=== PATIENT | male | born 1950 | race African-American/Black ===

== ENCOUNTER 2017-02-17 23:03 | Emergency (ER) | payer OTHER ==
[~2017-02-17] VITALS: Ht 185.4 cm; Wt 77.1 kg
[~2017-02-17 23:03] MED LIST: ALTACE10 MG PO; ALTACE5 M1 PO; ALTACE5 MG PO; ASA81BEC PO; ASPIR 8181 MG PO; ASPIRIN325 PO; BYSTOLIC 5 MG5 M1 PO; CUBICIN500 MG PO; EFFIENT10 MG PO; GLIPIZIDE 10 MG10 MG; GLIPIZIDE 10 MG10 MG PO; GLYBURID-METFO1 EAC3 PO; IRON325 PO; JANUVIA 50 MG T50 MG PO; JANUVIA100 MG PO; LEVEMIR SUBQ; METOPROLOL SUCC25 M1 PO; NEURONTIN 300300 M1 PO; NITROGLYCERIN0.4 MG SL; NOVOLOG100 UNIT/1 SUBQ; PLAVIX 75 MG TA75 MG PO; TOPROL XL25 MG PO; TYLENOL325 MG PO; VITAMIN C500 MG PO; VITAMIN D1000 UNI1 PO; VYTORIN 10-401 EACH PO; januvia
[2017-02-17] MEDS ORDERED: NEURONTIN250 MG/5 M PO (23:25)
[2017-02-17] MEDS ORDERED: PLAVIX 75 MG TA75 M1 PO (23:28)
[2017-02-17] MEDS ORDERED: XARELTO15 MG PO (23:29)
[2017-02-18] MEDS ORDERED: ZOFRAN ODT8 MG PO (02:10)
== END 2017-02-18 03:02 | disposition home or self-care (01) ==
LOC: ER 23:03
DX: S91.111A Laceration without foreign body of right great toe without damage to nail, initial encounter (principal); L76.22 Postprocedural hemorrhage of skin and subcutaneous tissue following other procedure; I13.10 Hypertensive heart and chronic kidney disease without heart failure, with stage 1 through stage 4 chronic kidney disease, or unspecified chronic kidney disease; E11.22 Type 2 diabetes mellitus with diabetic chronic kidney disease; N18.3 Chronic kidney disease, stage 3 (moderate); I25.2 Old myocardial infarction; Z95.5 Presence of coronary angioplasty implant and graft; Z79.4 Long term (current) use of insulin; I25.10 Atherosclerotic heart disease of native coronary artery without angina pectoris; E78.00 Pure hypercholesterolemia, unspecified; X58.XXXA Exposure to other specified factors, initial encounter; Y93.89 Activity, other specified; Y92.89 Other specified places as the place of occurrence of the external cause; Y99.8 Other external cause status

== ENCOUNTER → 2017-03-04 | Outpatient (CLI) | payer OTHER ==
[~2017-03-04] MED LIST changes: +NEURONTIN250 MG/5 M PO; +PLAVIX 75 MG TA75 M1 PO; +XARELTO15 MG PO; +ZOFRAN ODT8 MG PO
== END ==
LOC: HYPER 07:00
DX: T81.89XA Other complications of procedures, not elsewhere classified, initial encounter (principal); I96 Gangrene, not elsewhere classified; Z47.81 Encounter for orthopedic aftercare following surgical amputation; E11.42 Type 2 diabetes mellitus with diabetic polyneuropathy; M77.41 Metatarsalgia, right foot; M21.371 Foot drop, right foot; E11.51 Type 2 diabetes mellitus with diabetic peripheral angiopathy without gangrene; Z79.84 Long term (current) use of oral hypoglycemic drugs; Z09 Encounter for follow-up examination after completed treatment for conditions other than malignant neoplasm; Y83.8 Other surgical procedures as the cause of abnormal reaction of the patient, or of later complication, without mention of misadventure at the time of the procedure; Y92.89 Other specified places as the place of occurrence of the external cause

== ENCOUNTER → 2017-03-04 | Outpatient (CLI) | payer OTHER ==
--- NOTE | ~2017-03-04 | EKG ---
[address] [address] ELECTROCARDIOGRAM REPORT Name: GINA PALMER [id number] Admission: 03/04/17 Attend Phys: Jonathan Martinez MD Discharge: Date of : 46 Report #: [id number] THIS REPORT FOR: //name// [facility] Test Date: 2017-03-04 Test Time: 12:51:54 Pat Name: GINA PALMER Department: Room: Gender: M Seasoner Hand: Alfreda : 1950 Requested By: Jonathan Martinez Order Number: [id number] MD: Juve Sanches Measurements Intervals [place] Rate: 78 P: 66 ND: 161 QRS: 37 QRSD: 88 T: 40 QT: 395 QTc: 450 Interpretive Statements Sinus rhythm Early repolarization Compared to ECG 09/12/2016 22:58:40 Myocardial infarct finding now present No significant change was found Electronically Signed On 03-05-2017 8:40:33 CDT by Juve Sanches [email or web address] <ELECTRONICALLY SIGNED> By: Juve Sanches MD, [facility] 03/05/17 0840 1251 1251 Juve Sanches MD, [facility] /EPI
== END ==
LOC: CV 12:15
DX: Z01.818 Encounter for other preprocedural examination (principal); M77.41 Metatarsalgia, right foot

== ENCOUNTER → 2017-03-24 | Outpatient (CLI) | payer OTHER ==
[~2017-03-24] MED LIST changes: +LEVAQUIN 750 M750 MG PO; +NORCO 5-325 TA1 EACH PO
[2017-03-24 12:25] VITALS: BP 147/78
== END ==
LOC: OPONC 06:33
DX: M86.9 Osteomyelitis, unspecified (principal)
CPT/HCPCS: 95000

== ENCOUNTER → 2017-03-25 | Outpatient (CLI) | payer OTHER ==
[2017-03-25 13:30] VITALS: BP 139/71
[2017-03-25 13:31] VITALS: BP 139/71
== END ==
LOC: OPONC 06:18
DX: M86.9 Osteomyelitis, unspecified (principal)
CPT/HCPCS: 95000

== ENCOUNTER → 2017-03-26 | Outpatient (CLI) | payer OTHER ==
[2017-03-26 15:10] VITALS: BP 156/78
== END ==
LOC: OPONC 01:48
DX: M86.9 Osteomyelitis, unspecified (principal)
CPT/HCPCS: 95000

== ENCOUNTER → 2017-03-27 | Outpatient (CLI) | payer OTHER ==
[2017-03-27 09:17] VITALS: BP 171/93
[2017-03-27 09:30] LABS: HEMOGLOBIN 7.1 gm/dL (14.0-18.0); MCH 25.7 pg (26.0-34.0); MCHC 32.4 g/dL (28.0-37.0); MCV 79.3 fL (80.0-100.0); RBC 2.77 mil/uL (4.50-6.00); RDW 18.7 % (10.5-14.5); WBC 5.7 thou/uL (4.0-11.0)
[2017-03-27 09:42] LABS: ALBUMIN 2.3 g/dL (3.4-5.0); CALCIUM 8.8 mg/dL (8.5-10.1); CREATININE 1.3 mg/dL (0.7-1.3); POTASSIUM 5.3 mmol/L (3.5-5.1); TOTAL BILIRUBIN 0.2 mg/dL (<0.1-1.0); TOTAL PROTEIN 7.4 g/dL (6.4-8.2)
== END ==
LOC: OPONC 06:22
DX: M86.9 Osteomyelitis, unspecified (principal)
CPT/HCPCS: 95000

== ENCOUNTER → 2017-03-28 | Outpatient (CLI) | payer OTHER | LOC: OPONC 05:01 | DX: M86.9 Osteomyelitis, unspecified (principal) | CPT/HCPCS: 95000 ==

== ENCOUNTER → 2017-03-29 | Outpatient (CLI) | payer OTHER | LOC: OPONC 05:03 | DX: M86.9 Osteomyelitis, unspecified (principal) | CPT/HCPCS: 95000 ==

== ENCOUNTER → 2017-03-30 | Outpatient (CLI) | payer OTHER ==
[~2017-03-30] MED LIST changes: +CYCLOBENZAPRINE5 MG PO; +LEVAQUIN 500 M500 M3 PO
[2017-03-30 13:08] VITALS: BP 136/78
== END ==
LOC: HYPER 00:26
DX: M86.9 Osteomyelitis, unspecified (principal)
CPT/HCPCS: 95000

== ENCOUNTER → 2017-03-31 | Outpatient (CLI) | payer OTHER ==
[~2017-03-31] MED LIST changes: -CYCLOBENZAPRINE5 MG PO; -LEVAQUIN 500 M500 M3 PO
[2017-03-31 12:20] VITALS: BP 150/74
== END ==
LOC: OPONC 00:49
DX: M86.9 Osteomyelitis, unspecified (principal)
CPT/HCPCS: 95000

== ENCOUNTER → 2017-04-01 | Outpatient (CLI) | payer OTHER ==
[2017-04-01 12:55] VITALS: BP 145/74
== END ==
LOC: OPONC 07:55
DX: M86.9 Osteomyelitis, unspecified (principal)
CPT/HCPCS: 95000

== ENCOUNTER → 2017-04-02 | Outpatient (CLI) | payer OTHER ==
[2017-04-02 13:30] VITALS: BP 146/87
[2017-04-02 13:42] LABS: HEMATOCRIT 23.4 % (42.0-52.0); HEMOGLOBIN 7.5 gm/dL (14.0-18.0); MCH 25.2 pg (26.0-34.0); MCV 78.7 fL (80.0-100.0); RBC 2.97 mil/uL (4.50-6.00); RDW 18.2 % (10.5-14.5); WBC 4.8 thou/uL (4.0-11.0)
[2017-04-02 13:56] LABS: ALBUMIN 2.6 g/dL (3.4-5.0); CALCIUM 9.1 mg/dL (8.5-10.1); CREATININE 1.2 mg/dL (0.7-1.3); POTASSIUM 4.7 mmol/L (3.5-5.1); TOTAL BILIRUBIN 0.2 mg/dL (<0.1-1.0); TOTAL PROTEIN 7.8 g/dL (6.4-8.2)
== END ==
LOC: OPONC 00:36
DX: M86.9 Osteomyelitis, unspecified (principal)
CPT/HCPCS: 95000

== ENCOUNTER → 2017-04-03 | Outpatient (CLI) | payer OTHER ==
[2017-04-03 15:55] VITALS: BP 151/84
== END ==
LOC: OPONC 00:46
DX: M86.9 Osteomyelitis, unspecified (principal)
CPT/HCPCS: 95000

== ENCOUNTER → 2017-04-04 | Outpatient (CLI) | payer OTHER | LOC: OPONC 05:14 | DX: M86.9 Osteomyelitis, unspecified (principal) | CPT/HCPCS: 95000 ==

== ENCOUNTER → 2017-04-05 | Outpatient (CLI) | payer OTHER | LOC: OPONC 04:45 | DX: M86.9 Osteomyelitis, unspecified (principal) | CPT/HCPCS: 95000 ==

== ENCOUNTER 2017-04-06 10:06 | Emergency (ER) | payer OTHER ==
[~2017-04-06] VITALS: Ht 185.4 cm; Wt 74.8 kg
[2017-04-06 11:57] LABS: ABSOLUTE NEUTROPHILS 4.4 thou/uL (1.4-8.2); BASOPHILS 0.9 % (0.0-2.0); EOSINOPHILS 3.9 % (0.0-3.0); HEMATOCRIT 25.5 % (42.0-52.0); HEMOGLOBIN 8.3 gm/dL (14.0-18.0); LYMPHOCYTES 13.5 % (24.0-44.0); MCH 25.4 pg (26.0-34.0); MCHC 32.6 g/dL (28.0-37.0); MCV 78.1 fL (80.0-100.0); MONOCYTES 6.7 % (1.0-8.0); PLATELET COUNT 248 thou/uL (150-400); RBC 3.27 mil/uL (4.50-6.00); RDW 18.9 % (10.5-14.5); WBC 5.9 thou/uL (4.0-11.0)
[2017-04-06 11:59] LABS: MANUAL DIFF NO
[2017-04-06 12:05] LABS: CALCIUM 9.2 mg/dL (8.5-10.1); POTASSIUM 4.7 mmol/L (3.5-5.1)
== END 2017-04-06 14:18 | disposition home or self-care (01) ==
LOC: ER 10:06
PROVIDERS: Emergency Medicine
DX: I95.1 Orthostatic hypotension (principal); E86.0 Dehydration; N17.9 Acute kidney failure, unspecified; I12.9 Hypertensive chronic kidney disease with stage 1 through stage 4 chronic kidney disease, or unspecified chronic kidney disease; E11.22 Type 2 diabetes mellitus with diabetic chronic kidney disease; N18.3 Chronic kidney disease, stage 3 (moderate); I25.2 Old myocardial infarction; I25.10 Atherosclerotic heart disease of native coronary artery without angina pectoris; E78.5 Hyperlipidemia, unspecified; M19.90 Unspecified osteoarthritis, unspecified site; Z95.5 Presence of coronary angioplasty implant and graft; Z79.4 Long term (current) use of insulin

== ENCOUNTER → 2017-04-06 | Outpatient (CLI) | payer OTHER ==
[2017-04-06 08:50] VITALS: BP 81/38
== END ==
LOC: OPONC 00:59
DX: M86.9 Osteomyelitis, unspecified (principal)
CPT/HCPCS: 95000

== ENCOUNTER → 2017-04-07 | Outpatient (CLI) | payer OTHER ==
[2017-04-07 09:30] VITALS: BP 143/79
== END ==
LOC: OPONC 00:48
DX: M86.9 Osteomyelitis, unspecified (principal)
CPT/HCPCS: 95000

== ENCOUNTER → 2017-04-08 | Outpatient (CLI) | payer OTHER ==
[2017-04-08 08:55] VITALS: BP 126/75
== END ==
LOC: OPONC 00:44
DX: M86.9 Osteomyelitis, unspecified (principal)
CPT/HCPCS: 95000

== ENCOUNTER → 2017-04-09 | Outpatient (CLI) | payer OTHER ==
[2017-04-09 08:45] VITALS: BP 137/80
[2017-04-09 09:05] LABS: HEMATOCRIT 25.3 % (42.0-52.0); MCH 24.9 pg (26.0-34.0); MCHC 31.7 g/dL (28.0-37.0); MCV 78.6 fL (80.0-100.0); RBC 3.21 mil/uL (4.50-6.00); RDW 18.4 % (10.5-14.5); WBC 4.3 thou/uL (4.0-11.0)
[2017-04-09 09:57] LABS: ALBUMIN 2.6 g/dL (3.4-5.0); CREATININE 1.4 mg/dL (0.7-1.3); POTASSIUM 4.5 mmol/L (3.5-5.1); TOTAL BILIRUBIN 0.2 mg/dL (<0.1-1.0); TOTAL PROTEIN 7.5 g/dL (6.4-8.2)
== END ==
LOC: OPONC 01:26
DX: M86.9 Osteomyelitis, unspecified (principal)
CPT/HCPCS: 95000

== ENCOUNTER → 2017-04-10 | Outpatient (CLI) | payer OTHER ==
[2017-04-10 14:17] VITALS: BP 120/70
== END ==
LOC: OPONC 00:31
DX: M86.9 Osteomyelitis, unspecified (principal)
CPT/HCPCS: 95000

== ENCOUNTER → 2017-04-11 | Outpatient (CLI) | payer OTHER | LOC: OPONC 01:26 | DX: M86.9 Osteomyelitis, unspecified (principal) | CPT/HCPCS: 95000 ==

== ENCOUNTER → 2017-04-12 | Outpatient (CLI) | payer OTHER ==
[~2017-04-12] MED LIST changes: +CYCLOBENZAPRINE5 MG PO
== END ==
LOC: OPONC 01:26
DX: M86.8X7 Other osteomyelitis, ankle and foot (principal)
CPT/HCPCS: 95000

== ENCOUNTER → 2017-04-13 | Outpatient (CLI) | payer OTHER ==
[2017-04-13 10:59] VITALS: BP 89/54
== END ==
LOC: OPONC 01:26
DX: M86.9 Osteomyelitis, unspecified (principal)
CPT/HCPCS: 95000

== ENCOUNTER → 2017-04-14 | Outpatient (CLI) | payer OTHER ==
[2017-04-14 10:11] VITALS: BP 107/55
== END ==
LOC: OPONC 00:31
DX: M86.9 Osteomyelitis, unspecified (principal)
CPT/HCPCS: 95000

== ENCOUNTER 2017-04-15 13:55 | Emergency (ER) | payer OTHER ==
[~2017-04-15] VITALS: Ht 188 cm; Wt 78.0 kg
[~2017-04-15 13:55] MED LIST changes: -CYCLOBENZAPRINE5 MG PO
[2017-04-15 14:47] LABS: HEMATOCRIT 27.8 % (42.0-52.0); HEMOGLOBIN 8.8 gm/dL (14.0-18.0); MCH 24.7 pg (26.0-34.0); MCHC 31.6 g/dL (28.0-37.0); MCV 78.3 fL (80.0-100.0); PLATELET COUNT 141 thou/uL (150-400); RBC 3.55 mil/uL (4.50-6.00); RDW 18.7 % (10.5-14.5); WBC 8.4 thou/uL (4.0-11.0)
[2017-04-15 14:48] LABS: MANUAL DIFF YES
[2017-04-15 14:55] LABS: ANION GAP 4 mmol/L (7-16); BUN 32 mg/dL (7-18); CALCIUM 9.2 mg/dL (8.5-10.1); CHLORIDE 100 mmol/L (98-107); CO2 28 mmol/L (21-32); CREATININE 1.8 mg/dL (0.7-1.3); POTASSIUM 4.7 mmol/L (3.5-5.1); SODIUM 132 mmol/L (136-145)
[2017-04-15 15:01] LABS: GLUCOSE 584 mg/dL (74-106)
[2017-04-15 15:02] LABS: ALBUMIN 2.8 g/dL (3.4-5.0); ALKALINE PHOSPHATASE 115 U/L (46-116); SGOT 22 U/L (15-37); SGPT 28 U/L (30-65); TOTAL BILIRUBIN 0.3 mg/dL (<0.1-1.0); TOTAL PROTEIN 7.2 g/dL (6.4-8.2)
[2017-04-15 15:08] LABS: ABSOLUTE NEUTROPHILS 7.4 thou/uL (1.4-8.2); TOTAL CELL COUNT 100
[2017-04-15 15:09] LABS: ANISOCYTOSIS 1+; DIRECT BILIRUBIN < 0.1 mg/dL (<0.1-0.3); HYPOCHROMASIA 2+; MICROCYTES 2+
[2017-04-15 17:03] LABS: URINE BILIRUBIN NEGATIVE (Negative); URINE BLOOD TRACE (Negative); URINE COLOR YELLOW; URINE GLUCOSE-RANDOM* 3+ (Negative); URINE KETONES NEGATIVE (Negative); URINE LEUKOCYTES-REFLEX NEGATIVE (Negative); URINE PROTEIN (DIPSTICK) 1+ (Negative); URINE SPECIFIC GRAVITY <= 1.005 (1.003-1.035); URINE UROBILINOGEN 0.2 E.U./dl (0.2-1.0)
[2017-04-15 17:14] LABS: SQUAMOUS 0-3 Few /LPF (0-3)
[2017-04-15 17:15] LABS: CASTS None Seen /LPF (None Seen); CRYSTALS None Seen /LPF (None Seen); URINE RBC 3-10 Few /HPF (0-2); URINE WBC-REFLEX 6-15 Few /HPF (0-5)
[2017-04-15] MEDS ORDERED: CYCLOBENZAPRINE5 MG PO (18:51)
== END 2017-04-15 19:21 | disposition home or self-care (01) ==
LOC: ER 13:55
PROVIDERS: Emergency Medicine
DX: E86.0 Dehydration (principal); I95.1 Orthostatic hypotension; E11.65 Type 2 diabetes mellitus with hyperglycemia; I12.9 Hypertensive chronic kidney disease with stage 1 through stage 4 chronic kidney disease, or unspecified chronic kidney disease; E11.22 Type 2 diabetes mellitus with diabetic chronic kidney disease; N18.3 Chronic kidney disease, stage 3 (moderate); M19.90 Unspecified osteoarthritis, unspecified site; I25.10 Atherosclerotic heart disease of native coronary artery without angina pectoris; E78.5 Hyperlipidemia, unspecified; Z86.2 Personal history of diseases of the blood and blood-forming organs and certain disorders involving the immune mechanism; Z79.4 Long term (current) use of insulin

== ENCOUNTER → 2017-04-16 | Outpatient (CLI) | payer OTHER ==
[~2017-04-16] MED LIST changes: +CYCLOBENZAPRINE5 MG PO; +LEVAQUIN 500 M500 M3 PO
[2017-04-16 09:40] VITALS: BP 119/67
== END ==
LOC: OPONC 00:44
DX: M86.9 Osteomyelitis, unspecified (principal)
CPT/HCPCS: 95000

== ENCOUNTER → 2017-04-19 | Outpatient (CLI) | payer OTHER | LOC: OPONC 04:31 | DX: M86.9 Osteomyelitis, unspecified (principal) | CPT/HCPCS: 95000 ==

== ENCOUNTER → 2017-04-20 | Outpatient (CLI) | payer OTHER ==
[2017-04-20 09:10] VITALS: BP 165/91
== END ==
LOC: OPONC 00:41
DX: M86.9 Osteomyelitis, unspecified (principal)
CPT/HCPCS: 95000

== ENCOUNTER → 2017-04-21 | Outpatient (CLI) | payer OTHER ==
[2017-04-21 08:50] VITALS: BP 134/73
== END ==
LOC: OPONC 02:17
DX: M86.9 Osteomyelitis, unspecified (principal)
CPT/HCPCS: 95000

== ENCOUNTER → 2017-04-22 | Outpatient (CLI) | payer OTHER ==
[2017-04-22 12:45] VITALS: BP 151/87
== END ==
LOC: OPONC 00:20
DX: M86.9 Osteomyelitis, unspecified (principal)
CPT/HCPCS: 95000

== ENCOUNTER → 2017-04-23 | Outpatient (CLI) | payer OTHER ==
[2017-04-23 12:29] LABS: HEMATOCRIT 26.8 % (42.0-52.0); HEMOGLOBIN 8.5 gm/dL (14.0-18.0); MCH 24.6 pg (26.0-34.0); MCHC 31.7 g/dL (28.0-37.0); MCV 77.4 fL (80.0-100.0); RBC 3.46 mil/uL (4.50-6.00); RDW 18.4 % (10.5-14.5)
[2017-04-23 12:48] LABS: ALBUMIN 2.8 g/dL (3.4-5.0); CALCIUM 9.3 mg/dL (8.5-10.1); CREATININE 1.9 mg/dL (0.7-1.3); POTASSIUM 4.1 mmol/L (3.5-5.1); TOTAL BILIRUBIN 0.2 mg/dL (<0.1-1.0); TOTAL PROTEIN 7.5 g/dL (6.4-8.2)
[2017-04-23 13:30] VITALS: BP 96/56
== END ==
LOC: OPONC 00:04
DX: M86.9 Osteomyelitis, unspecified (principal)
CPT/HCPCS: 95000

== ENCOUNTER → 2017-04-24 | Outpatient (CLI) | payer OTHER ==
[2017-04-24 16:10] VITALS: BP 158/77
== END ==
LOC: OPONC 02:35
DX: M86.9 Osteomyelitis, unspecified (principal)
CPT/HCPCS: 95000

== ENCOUNTER → 2017-04-25 | Outpatient (CLI) | payer OTHER | LOC: OPONC 04:50 | DX: M86.9 Osteomyelitis, unspecified (principal) | CPT/HCPCS: 95000 ==

== ENCOUNTER → 2017-09-18 | Outpatient (CLI) | payer OTHER ==
[~2017-09-18] MED LIST changes: +AMLODIPINE BESY10 MG PO; +ASPIRIN EC325 MG PO; +ATORVASTATIN CA40 MG PO; +AUGMENTIN 875-1 EACH PO; +AZOPT OPHTH1 %/10 M1 OPHTHALMIC; +CITRATE OF MAG296 ML PO; +CLARITIN10 MG PO; +COMBIGAN EYE DR10 ML OPHTHALMIC; +COREG6.25 MG PO; +COUMADIN 1MG TAB1 M1 PO; +HYDRALAZINE 10M10 MG PO; +HYDROXYZINE HCL25 M1 PO; +LANTUS SUBQ; +LASIX 20 MG TAB20 MG PO; +LISINOPRIL20 MG PO; +MELATIN3 MG PO; +NAMZARIC 28 MG1 EACH PO; +OYSTER SHELL C500 MG PO; +PROCRIT20000 UNIT SUBQ; +PROTONIX40 M2 PO; +PROZAC20 MG PO; +SANTYL OINTMENT30 G1 TOP; +SENNA8.6 MG PO; +SKIN TREATMENT225 GM; +SYNTHROID25 MC1 PO; +VITAMINC500 PO; +XALATAN2.5 ML OPHTHALMIC; +ZANTAC 150MG T150 MG PO; +[UNRECOGNIZED DRUG - REMARK]
[2017-09-18 10:01] VITALS: BP 135/66; BP 172/89
[2017-09-18 12:40] VITALS: BP 155/78; BP 172/89; BP 174/81
== END ==
LOC: OPONC 09-17 07:12
DX: I12.9 Hypertensive chronic kidney disease with stage 1 through stage 4 chronic kidney disease, or unspecified chronic kidney disease (principal); E11.22 Type 2 diabetes mellitus with diabetic chronic kidney disease; N18.3 Chronic kidney disease, stage 3 (moderate); N17.9 Acute kidney failure, unspecified; R41.3 Other amnesia; D64.9 Anemia, unspecified; E11.59 Type 2 diabetes mellitus with other circulatory complications; I25.10 Atherosclerotic heart disease of native coronary artery without angina pectoris; Z82.49 Family history of ischemic heart disease and other diseases of the circulatory system
CPT/HCPCS: 91030

== ENCOUNTER 2018-03-20 17:28 | Inpatient (IN) | payer OTHER ==
[~2018-03-20] VITALS: Ht 185.4 cm; Wt 79.4 kg
--- NOTE | ~2018-03-20 | HC ---
[facility] [place] [address] CONSULTATION Name: GINA PALMER Wyatt Room #: 428-P [facility] IN .R.#: [id number] Admission: 03/20/18 Attend Phys: German Lane MD Discharge: Date of : 48 Report #: [id number] THIS REPORT FOR: //name// CC: Sung Torres MD REASON FOR CONSULTATION: The patient is a 67-year-old male who was admitted with the onset of acute diarrhea and also has abnormal liver function studies. HISTORY OF PRESENT ILLNESS: This 67-year-old male has a history of multiple medical problems, including diabetes, coronary artery disease, high blood pressure, chronic kidney disease, and peripheral vascular disease with recent amputation. He had a left rwwjp-tbq-fieq amputation at [facility]. He went to the rehab unit and was discharged home several weeks ago. He reported that 2 nights ago, he bought and ate a burrito sandwich. He said it was not very good. After eating the sandwich he developed diarrhea with multiple loose to watery stools. In the history and physical, there is a report of crampy abdominal pain, but he denies that he ever had abdominal pain at this time. He reports he did not have any rectal bleeding. Also, he did not have any fever, chills, nausea, or vomiting. He took Es-[place] without relief. Because of the diarrhea, he presented to [facility] and was admitted for further evaluation and treatment. Laboratory studies show white count of 2.8, hemoglobin of 10.4. Going back to the database, he has been significantly anemic for at least the past 7 years, platelet count. 177,000. Sodium 143, potassium 5.3, chloride 111, CO2 20, BUN 64 which is higher than it has been in the past, creatinine is 2.3, last June he was 1.7. Blood sugar 224. AST was initially 213, today it is 1:95. Bilirubin normal at 0.3. Alkaline phosphatase was 120 last June, was 1091 yesterday, and 1072 today. Likewise, his ALT was 94 last Hola and 469 yesterday and 449 today. Albumin was 2.5, serum ammonia was 10. Lactate was 0.3. INR of 4.4, it is noted that he is on Coumadin. Acute hepatitis panel is pending. A CT scan of the abdomen and pelvis was completed as well. It was done without IV contrast. He has trace bilateral pleural effusions and extensive coronary artery disease. A non-enhanced liver was unremarkable. There was cholelithiasis. There was also pericholecystic fluid. No bile duct dilation was identified. There was atheromatous calcification in the aorta, also mesenteric artery calcifications were noted. There was a small amount of fluid in the right pericolic gutter. There was no evidence of appendicitis. There was a small fat-containing umbilical hernia. He reports, at this time, he is not having any diarrhea, he slept all night without diarrhea. He denies abdominal pain. He has never consumed much [address] [address] CONSULTATION Name: GINA PALMER Room #: 428-P [facility] IN M.R.#: [id number] Admission: 03/20/18 Attend Phys: German Lane MD Discharge: Date of : 46 Report #: [id number] alcohol. He has never used intravenous drugs or shared needles. He does recall having a blood transfusion many years ago, he does not recall the details. He also donated blood once many years ago and does not recall any problems. He does have some fatigue. He has not had any change in the color of his eyes or his urine. There is no family history of liver disease. It was reported he had a colonoscopy in 2012. He is not sure of the date. He believes he was told to return in 5 years. PAST MEDICAL HISTORY: Recent left mwcke-pkm-ymtk amputation on 12/07/2017, longstanding insulin-dependent diabetes mellitus, and high blood pressure. He has had esophagitis in the past, but he does not recall the specific details. He has had orthostatic hypotension. He has had previous right toe amputation with HBO. He has degenerative joint disease. He has known coronary artery disease. He has had a diabetic ulcer. He has had chronic kidney disease stage III, three-vessel coronary artery disease, left proximal humerus fracture, facial fracture, and longstanding anemia requiring blood transfusions in September of this year. He has also had some memory loss and a vestibular disorder. ALLERGIES: He reports no known drug allergies. MEDICATIONS: He cannot state his medications, but in the record listed are Vytorin, acetaminophen, but he says he does not use it very often, gabapentin, Plavix, Levemir insulin, iron sulfate, Namzaric, lisinopril, and aspirin. FAMILY HISTORY: No family history of colon cancer, ulcer disease, or liver disease. SOCIAL HISTORY: He has never smoked. He does not consume alcohol. REVIEW OF SYSTEMS: GENERAL: There has been no change in weight, fever, or chills. CENTRAL NERVOUS SYSTEM: No weakness, but he does have peripheral neuropathy. HEENT: No change in vision, hearing, or sores in the mouth. PULMONARY: No cough, pneumonia, or tuberculosis. CARDIOVASCULAR: No chest pain, chest tightness, or palpitations. GASTROINTESTINAL: He denies heartburn symptoms, nausea, vomiting, or rectal bleeding. GENITOURINARY: Chronic kidney disease. MUSCULOSKELETAL: He does have arthritis, had a recent left ywxlm-wij-jhww amputation. He has also had toe amputations on the right. SKIN: He has an open wound on his BKA stump. ENDOCRINE: Notable for diabetes. HEMATOLOGIC: Chronic anemia and no malignancies. PHYSICAL EXAMINATION: GENERAL: The patient is a well-developed, well-nourished quiet -British [address] [address] CONSULTATION Name: ESTELAGINA D Room #: 428-P [facility] IN M.R.#: [id number] Admission: 03/20/18 Attend Phys: German Lane MD Discharge: Date of : 46 Report #: [id number] male in no acute distress. He is resting comfortably in bed. He is soft spoken and answers questions appropriately, but a little slow. VITAL SIGNS: Blood pressure 149/79, pulse is 70. He has been afebrile. HEENT: Anicteric. Pupils equal, round. Oropharynx clear. NECK: Supple. CHEST: Clear. HEART: Regular rate and rhythm, normal S1 and S2. ABDOMEN: Somewhat full, but soft, nontender, without hepatosplenomegaly or masses. RECTAL: Not done. EXTREMITIES: Without cyanosis, clubbing, edema. Left drssl-lyn-dzqg amputation noted. There is an open wound on the stump. ASSESSMENT: 1. Diarrhea, the patient reports has resolved. 2. Abnormal liver function studies. 3. Insulin-dependent diabetes mellitus. 4. Chronic kidney disease. 5. Coronary artery disease with coronary stents. 6. Peripheral vascular disease, status post amputations. 7. Degenerative joint disease. 8. Chronic anemia. COMMENT: The patient is asymptomatic with regard to his liver disease. Stigmata of chronic liver disease are not identified today. He does have significantly elevated LFTs. There has been a recent change compared to LFTs in this institution last June. Factors include chronic disease, chronic infection, diabetes, as well as multiple medications. Cholecystitis may be a factor as well. RECOMMENDATIONS: 1. I agree with surgery with regard to further evaluation of his gallbladder. 2. May need cholecystectomy. 3. Follow up on hepatitis markers. 4. We will check autoimmune markers, especially in view of his diabetes. 5. Consider liver biopsy if LFTs do not improve. 6. Continue to monitor liver function studies. <ELECTRONICALLY SIGNED> By: Martin Clark MD 03/24/18 1507 1155 1851 Martin Clark MD /nt
--- NOTE | ~2018-03-20 | EKG ---
[address] [address] ELECTROCARDIOGRAM REPORT Name: GINA PALMER Room #: 170-12 ADM IN M.R.#: [id number] Admission: 03/20/18 Attend Phys: Sung Gongora MD Discharge: Date of : 46 Report #: [id number] THIS REPORT FOR: //name// [facility] ED Test Date: 2018-03-20 Test Time: 21:19:00 Pat Name: GINA PALMER Department: Room: 170 12 Gender: M Employment Interviewer: doroteo : 1950 Requested By: Suly Person Order Number: [id number] MD: Measurements Intervals [place] Rate: 57 P: 46 MN: 240 QRS: 18 QRSD: 94 T: 38 QT: 456 QTc: 444 Interpretive Statements Sinus rhythm Prolonged MN interval Probable left atrial enlargement Borderline low voltage, extremity leads Compared to ECG 06/12/2017 08:38:05 First degree AV block now present [email or web address] By: 2119 2119 Epiphany MD Akiko /EPI
--- NOTE | ~2018-03-20 | HC ---
[facility] [place] [address] CONSULTATION Name: GINA PALMER Wyatt Room #: 428-P [facility] IN M.R.#: [id number] Admission: 03/20/18 Attend Phys: German Lane MD Discharge: Date of : 48 Report #: [id number] THIS REPORT FOR: //name// CC: German Lane DATE OF SERVICE: 03/22/2018 CHIEF COMPLAINT: Left BKA stump wound. HISTORY OF PRESENT ILLNESS: This is a 67-year-old male with a history of diabetes, hypertension, peripheral vascular disease and chronic kidney disease, status post left BKA. He has had an area of separation along the BKA. He is admitted due to abdominal pain, and I have been asked to see him with regard to ongoing wound care. PAST MEDICAL HISTORY: Positive for history of previous left BKA on 12/07/2017, diabetes mellitus, uncontrolled; hypertension, seizure disorder, coronary artery disease, hyperlipidemia, type 2 diabetes mellitus, iron deficiency anemia. SOCIAL HISTORY: Negative for alcohol or tobacco use. FAMILY HISTORY: Noncontributory. REVIEW OF SYSTEMS: CONSTITUTIONAL: The patient denies fever, chills or weight loss. NEUROLOGICAL: The patient denies focal weakness. ENT: The patient denies earache, nasal drainage or sore throat. CARDIOVASCULAR: The patient denies chest pain, palpitation or diaphoresis. PULMONARY: The patient denies cough or shortness of breath. GASTROINTESTINAL: The patient does complain of some nausea and abdominal discomfort. ORTHOPEDIC: The patient is aware of the ulceration on his left BKA. He is asking when he might walk again. Other systems in a 14-point review of systems are negative. PHYSICAL EXAMINATION: VITAL SIGNS: At this time includes pulse 92, respiratory rate of 20, blood pressure 115/65. GENERAL: This is a chronically ill-appearing male patient who appears in minimal distress. HEENT: Head is normocephalic. Nose and throat clear. NECK: Supple. LUNGS: Clear. ABDOMEN: Soft. There is mild tenderness throughout, especially in the right upper quadrant, but it is fairly minimal. There is no guarding or rebound noted. [facility] [address] [place] [address] CONSULTATION Name: GINA PALMER Room #: 428-P ADM IN M.R.#: [id number] Admission: 03/20/18 Attend Phys: German Lane MD Discharge: Date of : 46 Report #: [id number] EXTREMITIES: Demonstrate left BKA with an open area that is healthy, clean and granulating with some surrounding crusting to the open wound. It is not overtly infected. NEUROLOGIC: The patient is alert and does move all 4 extremities spontaneously. CLINICAL IMPRESSION: 1. Abdominal pain, possible cholecystitis. 2. Left below-knee amputation stump wound. 3. Type 2 diabetes mellitus. 4. Peripheral arterial disease. RECOMMENDATIONS: At this point in time, we will recommend quarter strength Dakin's moist gauze dressing b.i.d. to the stump wound. Hopefully, this will clean this up and make it more amenable to healing. After a few days, we might switch over to a collagen based dressing change. All questions have been answered. I appreciate being asked to see him in consultation. <ELECTRONICALLY SIGNED> By: Jonathan Martinez MD 03/23/181951 31 Jonathan Martinez MD /nt
[~2018-03-20 17:28] MED LIST changes: -AMLODIPINE BESY10 MG PO; -ATORVASTATIN CA40 MG PO; -AUGMENTIN 875-1 EACH PO; -AZOPT OPHTH1 %/10 M1 OPHTHALMIC; -CLARITIN10 MG PO; -COMBIGAN EYE DR10 ML OPHTHALMIC; -COREG6.25 MG PO; -COUMADIN 1MG TAB1 M1 PO; -HYDRALAZINE 10M10 MG PO; -HYDROXYZINE HCL25 M1 PO; -LASIX 20 MG TAB20 MG PO; -MELATIN3 MG PO; -OYSTER SHELL C500 MG PO; -PROCRIT20000 UNIT SUBQ; -PROTONIX40 M2 PO; -PROZAC20 MG PO; -SANTYL OINTMENT30 G1 TOP; -SENNA8.6 MG PO; -SKIN TREATMENT225 GM; -SYNTHROID25 MC1 PO; -VITAMINC500 PO; -XALATAN2.5 ML OPHTHALMIC; -[UNRECOGNIZED DRUG - REMARK]
[2018-03-20 18:00] VITALS: BP 139/76
[2018-03-20 18:09] LABS: HEMATOCRIT 30.7 % (42.0-52.0); HEMOGLOBIN 10.1 gm/dL (14.0-18.0); MCH 26.7 pg (26.0-34.0); MCHC 32.7 g/dL (28.0-37.0); MCV 81.7 fL (80.0-100.0); PLATELET COUNT 162 thou/uL (150-400); RBC 3.76 mil/uL (4.50-6.00); RDW 17.8 % (10.5-14.5); WBC 2.8 thou/uL (4.0-11.0)
[2018-03-20 18:14] LABS: CALCIUM 8.7 mg/dL (8.5-10.1); CREATININE 2.4 mg/dL (0.7-1.3); POTASSIUM 5.2 mmol/L (3.5-5.1)
[2018-03-20 18:29] LABS: ALBUMIN 2.6 g/dL (3.4-5.0); TOTAL BILIRUBIN 0.3 mg/dL (<0.1-1.0); TOTAL PROTEIN 7.4 g/dL (6.4-8.2)
[2018-03-20 18:51] LABS: ABSOLUTE NEUTROPHILS 1.9 thou/uL (1.4-8.2); ANISOCYTOSIS 1+; INR 4.4; PROTIME 44.4 Seconds (9.3-11.4)
[2018-03-20 19:18] LABS: URINE BILIRUBIN NEGATIVE (Negative); URINE BLOOD NEGATIVE (Negative); URINE CLARITY CLEAR; URINE COLOR YELLOW; URINE GLUCOSE-RANDOM* NEGATIVE (Negative); URINE KETONES NEGATIVE (Negative); URINE LEUKOCYTES-REFLEX NEGATIVE (Negative); URINE NITRITE-REFLEX NEGATIVE (Negative); URINE PROTEIN (DIPSTICK) 2+ (Negative); URINE SPECIFIC GRAVITY 1.025 (1.005-1.035); URINE UROBILINOGEN 0.2 E.U./dl (0.2-1.0)
[2018-03-20 19:36] LABS: BACTERIA-REFLEX None Seen /HPF (None Seen); CASTS None Seen /LPF (None Seen); CRYSTALS None Seen /LPF (None Seen); SQUAMOUS None Seen /LPF (0-3); URINE RBC None Seen /HPF (0-2); URINE WBC-REFLEX 0-5 Rare /HPF (0-5)
[2018-03-20 20:46] VITALS: BP 129/70
[2018-03-20 21:15] VITALS: BP 138/52
[2018-03-20 22:30] VITALS: BP 138/52
[2018-03-21 05:30] VITALS: BP 145/77
[2018-03-21 06:22] LABS: HEMATOCRIT 32.5 % (42.0-52.0); HEMOGLOBIN 10.4 gm/dL (14.0-18.0); MCH 26.2 pg (26.0-34.0); MCHC 31.9 g/dL (28.0-37.0); MCV 82.2 fL (80.0-100.0); RBC 3.96 mil/uL (4.50-6.00); RDW 17.8 % (10.5-14.5); WBC 2.8 thou/uL (4.0-11.0)
[2018-03-21 06:34] LABS: INR 4.4; PROTIME 43.6 Seconds (9.3-11.4)
[2018-03-21 06:48] LABS: ALBUMIN 2.5 g/dL (3.4-5.0); CALCIUM 8.6 mg/dL (8.5-10.1); CREATININE 2.3 mg/dL (0.7-1.3); POTASSIUM 5.3 mmol/L (3.5-5.1); TOTAL BILIRUBIN 0.3 mg/dL (<0.1-1.0); TOTAL PROTEIN 7.3 g/dL (6.4-8.2)
[2018-03-21 07:52] VITALS: BP 147/79
[2018-03-21 16:41] VITALS: BP 145/74
[2018-03-21 19:59] VITALS: BP 140/76
[2018-03-21] MEDS ORDERED: XALATAN2.5 ML OPHTHALMIC (22:14)
[2018-03-21] MEDS ORDERED: AZOPT OPHTH1 %/10 M1 OPHTHALMIC (22:16)
[2018-03-21] MEDS ORDERED: COMBIGAN EYE DR10 ML OPHTHALMIC (22:17)
[2018-03-21] MEDS ORDERED: SKIN TREATMENT225 GM (22:19)
[2018-03-21] MEDS ORDERED: [UNRECOGNIZED DRUG - REMARK] (22:21)
[2018-03-22 07:11] LABS: ABSOLUTE NEUTROPHILS 2.5 thou/uL (1.4-8.2); BASOPHILS 1.1 % (0.0-2.0); EOSINOPHILS 5.5 % (0.0-3.0); HEMATOCRIT 33.1 % (42.0-52.0); HEMOGLOBIN 10.8 gm/dL (14.0-18.0); LYMPHOCYTES 22.8 % (24.0-44.0); MCH 26.5 pg (26.0-34.0); MCHC 32.5 g/dL (28.0-37.0); MCV 81.3 fL (80.0-100.0); PLATELET COUNT 186 thou/uL (150-400); POLYS 61.6 % (36.0-66.0); RBC 4.07 mil/uL (4.50-6.00)
[2018-03-22 07:42] LABS: ALBUMIN 2.4 g/dL (3.4-5.0); CALCIUM 8.7 mg/dL (8.5-10.1); CREATININE 2.1 mg/dL (0.7-1.3); DIRECT BILIRUBIN 0.2 mg/dL (<0.1-0.3); POTASSIUM 4.7 mmol/L (3.5-5.1); TOTAL BILIRUBIN 0.5 mg/dL (<0.1-1.0); TOTAL PROTEIN 7.3 g/dL (6.4-8.2)
[2018-03-22 08:00] VITALS: BP 146/78
[2018-03-22 16:08] LABS: HAV IgM AB (ANTI-HAV IgM) Negative (Negative); HEPATITIS B SURFACE AG Negative (Negative); HEPATITIS C VIRUS AB 0.5 (0.0-0.9)
[2018-03-22 16:28] VITALS: BP 115/65
[2018-03-22 20:26] VITALS: BP 143/80
[2018-03-23 07:21] VITALS: BP 150/84
[2018-03-23 10:36] VITALS: BP 150/84
[2018-03-23 14:10] LABS: MITOCHONDRIAL ANTIBODY 5.6 Units (0.0-20.0)
[2018-03-23 15:57] VITALS: BP 158/84
[2018-03-23 20:25] VITALS: BP 175/106
[2018-03-24 03:44] VITALS: BP 182/102
[2018-03-24 07:13] LABS: % SATURATION 39 % (20-39); IRON 77 ug/dL (65-175); TIBC 196 ug/dL (250-450)
[2018-03-24 07:51] VITALS: BP 160/86
[2018-03-24 10:48] VITALS: BP 160/86
[2018-03-24] MEDS ORDERED: AUGMENTIN 875-1 EACH PO (11:04)
[2018-03-24 12:08] VITALS: BP 160/86
[2018-03-24 12:14] LABS: ALBUMIN 2.5 g/dL (3.4-5.0); DIRECT BILIRUBIN 0.3 mg/dL (<0.1-0.3); TOTAL BILIRUBIN 0.6 mg/dL (<0.1-1.0); TOTAL PROTEIN 7.1 g/dL (6.4-8.2)
[2018-03-24 13:26] VITALS: BP 160/86
[2018-03-24 13:47] VITALS: BP 160/86
== END 2018-03-24 15:14 | disposition home health service (06) | DRG 871 ==
LOC: ER 17:28 → 4E 20:29 → EROBS 20:29 → 4E 21:46
PROVIDERS: Hospitalist; Internal Medicine Gastroenterology; Nurse Practitioner; Nurse Practitioner Family; Specialist
DX: A41.9 Sepsis, unspecified organism (principal); E43 Unspecified severe protein-calorie malnutrition; K80.00 Calculus of gallbladder with acute cholecystitis without obstruction; N17.9 Acute kidney failure, unspecified; E46 Unspecified protein-calorie malnutrition; I10 Essential (primary) hypertension; M19.90 Unspecified osteoarthritis, unspecified site; I25.10 Atherosclerotic heart disease of native coronary artery without angina pectoris; E78.5 Hyperlipidemia, unspecified; I25.5 Ischemic cardiomyopathy; T87.89 Other complications of amputation stump; N18.3 Chronic kidney disease, stage 3 (moderate); D72.819 Decreased white blood cell count, unspecified; E11.51 Type 2 diabetes mellitus with diabetic peripheral angiopathy without gangrene; D64.9 Anemia, unspecified; G40.909 Epilepsy, unspecified, not intractable, without status epilepticus; Y83.5 Amputation of limb(s) as the cause of abnormal reaction of the patient, or of later complication, without mention of misadventure at the time of the procedure; R41.3 Other amnesia; R74.0 Nonspecific elevation of levels of transaminase and lactic acid dehydrogenase [LDH]; K75.9 Inflammatory liver disease, unspecified; E87.5 Hyperkalemia; Z68.23 Body mass index [BMI] 23.0-23.9, adult; Z86.718 Personal history of other venous thrombosis and embolism; Z95.5 Presence of coronary angioplasty implant and graft; I25.2 Old myocardial infarction; Z79.4 Long term (current) use of insulin; Z89.421 Acquired absence of other right toe(s); Z87.81 Personal history of (healed) traumatic fracture
CPT/HCPCS: 10183

== ENCOUNTER 2018-03-26 10:14 | Emergency (ER) | payer MEDICARE, OTHER ==
[~2018-03-26] VITALS: Ht 185.4 cm; Wt 79.4 kg
--- NOTE | ~2018-03-26 | EKG ---
[address] [place] [address] ELECTROCARDIOGRAM REPORT Name: GINA PALMER [id number] Admission: 03/26/18 Attend Phys: Discharge: 03/26/18 Date of : 46 Report #: [id number] THIS REPORT FOR: //name// [facility] ED Test Date: 2018-03-26 Test Time: 11:11:10 Pat Name: GINA PALMER Department: Room: Gender: Selling Specialist: Kin CARVER : 1950 Requested By: Sigifredo Bella Order Number: [id number] MD: Measurements Intervals [place] Rate: 60 P: 33 [place]: 201 QRS: 3 QRSD: 91 T: 57 QT: 465 QTc: 465 Interpretive Statements Sinus rhythm Probable left atrial enlargement Low voltage, extremity leads Nonspecific T abnormalities, lateral leads Compared to ECG 03/20/2018 21:19:00 T-wave abnormality now present First degree AV block no longer present [email or web address] By: 1111 [facility] Epiphroberto carlos Wharton MD /EPI
[~2018-03-26 10:14] MED LIST changes: +AUGMENTIN 875-1 EACH PO; +AZOPT OPHTH1 %/10 M1 OPHTHALMIC; +COMBIGAN EYE DR10 ML OPHTHALMIC; +SKIN TREATMENT225 GM; +XALATAN2.5 ML OPHTHALMIC; +[UNRECOGNIZED DRUG - REMARK]
[2018-03-26 10:42] LABS: ABSOLUTE NEUTROPHILS 1.5 thou/uL (1.4-8.2); EOSINOPHILS 13.8 % (0.0-3.0); HEMATOCRIT 35.7 % (42.0-52.0); HEMOGLOBIN 11.3 gm/dL (14.0-18.0); LYMPHOCYTES 29.8 % (24.0-44.0); MCH 25.6 pg (26.0-34.0); MCHC 31.6 g/dL (28.0-37.0); MCV 81.2 fL (80.0-100.0); MONOCYTES 10.5 % (1.0-8.0); PLATELET COUNT 226 thou/uL (150-400); POLYS 42.9 % (36.0-66.0); RDW 17.7 % (10.5-14.5); WBC 3.4 thou/uL (4.0-11.0)
[2018-03-26 11:05] LABS: ALBUMIN 2.4 g/dL (3.4-5.0); ANION GAP 7 mmol/L (7-16); BUN 24 mg/dL (7-18); CALCIUM 9.5 mg/dL (8.5-10.1); CHLORIDE 113 mmol/L (98-107); CO2 24 mmol/L (21-32); CREATININE 1.4 mg/dL (0.7-1.3); MAGNESIUM 2.1 mg/dL (1.8-2.4); POTASSIUM 4.9 mmol/L (3.5-5.1); SGOT 60 U/L (15-37); SGPT 186 U/L (30-65); SODIUM 144 mmol/L (136-145); TOTAL BILIRUBIN 0.5 mg/dL (<0.1-1.0); TOTAL PROTEIN 8.1 g/dL (6.4-8.2); TROPONIN-I <0.06 ng/mL (<0.06)
[2018-03-26 11:10] LABS: GLUCOSE 35 mg/dL (74-106)
== END 2018-03-26 11:58 | disposition home or self-care (01) ==
LOC: ER 10:14
PROVIDERS: Emergency Medicine
DX: E11.649 Type 2 diabetes mellitus with hypoglycemia without coma (principal); E11.22 Type 2 diabetes mellitus with diabetic chronic kidney disease; I12.9 Hypertensive chronic kidney disease with stage 1 through stage 4 chronic kidney disease, or unspecified chronic kidney disease; N18.3 Chronic kidney disease, stage 3 (moderate); E11.622 Type 2 diabetes mellitus with other skin ulcer; K20.9 Esophagitis, unspecified; I25.2 Old myocardial infarction; I25.10 Atherosclerotic heart disease of native coronary artery without angina pectoris; E78.5 Hyperlipidemia, unspecified; E55.9 Vitamin D deficiency, unspecified; I25.5 Ischemic cardiomyopathy; Z89.512 Acquired absence of left leg below knee

== ENCOUNTER → 2018-03-29 | Outpatient (CLI) | payer OTHER | LOC: HYPER 07:17 | DX: T81.31XD Disruption of external operation (surgical) wound, not elsewhere classified, subsequent encounter (principal); E10.51 Type 1 diabetes mellitus with diabetic peripheral angiopathy without gangrene; E10.42 Type 1 diabetes mellitus with diabetic polyneuropathy; L72.0 Epidermal cyst; E78.00 Pure hypercholesterolemia, unspecified; Z89.421 Acquired absence of other right toe(s); Z79.4 Long term (current) use of insulin; Z89.512 Acquired absence of left leg below knee; Y83.8 Other surgical procedures as the cause of abnormal reaction of the patient, or of later complication, without mention of misadventure at the time of the procedure ==

== ENCOUNTER 2018-04-06 10:03 | Inpatient (IN) | payer OTHER ==
[~2018-04-06] VITALS: Ht 182.9 cm; Wt 82.3 kg
--- NOTE | ~2018-04-06 | PATH ---
[facility] [address] [place] [address] PATHOLOGY RPT PROCEDURE Name: GINA PALMER Room #: 354-P [facility] IN ..#: [id number] Admission: 04/06/18 Date of : 46 Discharge: 04/12/18 Report #: [id number] Path Case #: [id number] Note [facility] Accession Number: [id number] TESTS RESULT FLAG UNITS REF RANGE LAB Clinician Provided Cytology Information No. of containers..01 Other (Miscellaneous) Source: PLEURAL FLUID DIAGNOSIS: 02 PLEURAL FLUID NEGATIVE FOR MALIGNANT CELLS. MESOTHELIAL CELLS ARE PRESENT. THIS INTERPRETATION INCLUDES EVALUATION OF A CELL BLOCK. Signed out by: 02 Tonya Farah MD, Pathologist NPI- [id number] Performed by: Angelika Hennessy, Swiss Type Screw Machine Operator ([facility]) Gross description: 01 31ML, YELLOW, CLOUDY /LCS FLAG LEGEND: L-Low Normal,H-High Normal,LL-Alert Low,HH-Alert High <-Panic Low,>-Panic High,A-Abnormal,AA-Critical Abnormal Performed at: [address] [place] [address] Juancarlos Mccauley MD, [address] [address] Tonya Farah MD, Specimen Comment: A courtesy copy of this report has been sent to Specimen Comment: [phone]. Specimen Comment: Report sent to Specimen Comment: A duplicate report has been generated due to demographic updates. Performed at: [address], [place], [place] [id number] MD Juancarlos Mccauley MD Phone: [phone]
--- NOTE | ~2018-04-06 | EKG ---
[address] [place] [address] ELECTROCARDIOGRAM REPORT Name: GINA PALMER Room #: 354-P ADM IN M.R.#: [id number] Admission: 04/06/18 Attend Phys: German Lane MD Discharge: Date of : 46 Report #: [id number] THIS REPORT FOR: //name// [facility] ED Test Date: 2018-04-06 Test Time: 10:19:25 Pat Name: GINA PALMER Department: Room: 354 Gender: M Senior Examiner: : 1950 Requested By: Alana Llamas Order Number: [id number] MD: Juve Sanches Measurements Intervals [place] Rate: 72 P: 32 [place]: 201 QRS: 12 QRSD: 91 T: 103 QT: 417 QTc: 457 Interpretive Statements Sinus rhythm Borderline low voltage, extremity leads Nonspecific T abnormalities Compared to ECG 03/26/2018 11:11:10 No significant changes Electronically Signed On 04-06-2018 16:36:47 CDT by Juve Sanches [email or web address] <ELECTRONICALLY SIGNED> By: Juve Sanches MD, [facility] 04/06/18 1636 1019 1019 Juve Sanches MD, [facility] /EPI
--- NOTE | ~2018-04-06 | 2DMMODE ---
[facility] [address] [place] [address] 2 D/M-MODE ECHOCARDIOGRAM Name: GINA PALMER Room #: 354-P [facility] IN .#: [id number] Admission: 04/06/18 Attend Phys: German Lane, Discharge: Date of : 46 Date of Service: 04/06/18 1616 Report #: [id number] THIS REPORT FOR: //name// APPROVED REPORT Study performed: 04/06/2018 14:39:26 EXAM: Comprehensive 2D, Doppler, and color-flow Echocardiogram Patient Location: In-Patient Room #: 354 Status: routine BSA: 2.01 HR: 73 bpm BP: 165/84 mmHg Other Information Study Quality: Good Indications SOB. HX: DM, CAD, CABG, HTN 2D Dimensions RVDd: 37.36 mm IVSd: 11.85 (7-11mm) LVOT Diam: 20.96 (18-24mm) LVDd: 48.20 mm PWd: 11.92 (7-11mm) Ascending Ao: 31.25 (22-36mm) LVDs: 33.78 (25-40mm) Aortic Root: 33.64 mm IVC: 23.00 mm Volumes Left Atrial Volume (Systole) Single Plane 4CH: 85.97 mL Single Plane 2CH: 67.71 mL LA ESV Index: 41.00 mL/m2 Aortic Valve LVOT Max P.66 mmHg LVOT Max V: 0.81 m/s Mitral Valve E/A Ratio: 1.8 MV Decel. Time: 164.67 ms MV E Max Toby.: 1.07 m/s MV A Toby.: 0.60 m/s MV PHT: 47.75 ms IVRT: 115.34 ms [facility] [place] [address] [place] [address] 2 D/M-MODE ECHOCARDIOGRAM Name: GINA PALMER Room #: 354-[facility] IN ..#: [id number] Admission: 04/06/18 Attend Phys: German Lane, Discharge: Date of : 46 Date of Service: 04/06/18 1616 Report #: [id number] Pulmonary Valve PV Peak Toby.: 0.79 m/s PV Peak Gr.: 2.52 mmHg Pulmonary Vein P Vein S: 0.49 m/s P Vein D: 0.81 m/s P Vein S/D Ratio: 0.60 Tricuspid Valve TR Peak Toby.: 3.93 m/s RAP Estimate: 15.00 mmHg TR Peak Gr.: 61.81 mmHg PA Pressure: 77.00 mmHg Left Ventricle The left ventricle is normal size. Mild concentric left ventricular hypertrophy. Left ventricular systolic function is normal. LVEF is 50-55%. Possible minimal hypokinesis involving base of inferolateral wall. The left ventricular diastolic function is normal. Right Ventricle The right ventricle is normal size. The right ventricular systolic function is normal. Atria Left atrium is moderately dilated. Right atrium is mildly dilated. Aortic Valve Aortic valve leaflets are mildly sclerotic Trace aortic regurgitation. There is no aortic valvular stenosis. Mitral Valve Mitral valve leaflets are mildly thickened. Mild mitral regurgitation. No evidence of mitral valve stenosis. Tricuspid Valve The tricuspid valve is normal in structure. Moderate tricuspid regurgitation. Estimated PAP is 75 mmHg. Pulmonic Valve The pulmonary valve is normal in structure. Trace pulmonic regurgitation. Great Vessels The aortic root is normal in size. The ascending aorta is normal in [facility] [address] [place] [address] 2 D/M-MODE ECHOCARDIOGRAM Name: GINA PALMER Room #: 354-P [facility] IN ..#: [id number] Admission: 04/06/18 Attend Phys: German Lane, Discharge: Date of : 46 Date of Service: 04/06/18 1616 Report #: [id number] size. IVC is dilated and collapses <50% with inspiration. Pericardium There is no pericardial effusion. Left and right pleural effusion noted. <Conclusion> Left ventricular systolic function is normal. LVEF is 50-55%. Possible minimal hypokinesis involving base of inferolateral wall. Left atrium is moderately dilated. Aortic valve leaflets are mildly sclerotic. Trace aortic regurgitation, no stenosis. Mitral valve leaflets are mildly thickened. Mild mitral regurgitation. Moderate tricuspid regurgitation. Estimated pulmonary artery pressure of 75 mmHg. There is no pericardial effusion. <ELECTRONICALLY SIGNED> By: Juve Sanches MD, FACC 04/06/181615 15 15 Juve Sanches MD, FACC /INF
[2018-04-06 10:06] VITALS: BP 151/76
[2018-04-06 10:36] LABS: ABSOLUTE NEUTROPHILS 5.5 thou/uL (1.4-8.2); BASOPHILS 1.2 % (0.0-2.0); EOSINOPHILS 3.4 % (0.0-3.0); HEMOGLOBIN 10.8 gm/dL (14.0-18.0); LYMPHOCYTES 10.4 % (24.0-44.0); MCHC 32.6 g/dL (28.0-37.0); MONOCYTES 7.2 % (1.0-8.0); PLATELET COUNT 217 thou/uL (150-400); POLYS 77.8 % (36.0-66.0); RBC 4.13 mil/uL (4.50-6.00); RDW 17.8 % (10.5-14.5)
[2018-04-06 10:44] LABS: ANION GAP 9 mmol/L (7-16); BUN 54 mg/dL (7-18); CHLORIDE 108 mmol/L (98-107); CO2 25 mmol/L (21-32); GLUCOSE 88 mg/dL (74-106); POTASSIUM 5.5 mmol/L (3.5-5.1); SODIUM 142 mmol/L (136-145)
[2018-04-06 10:58] LABS: SGOT 79 U/L (15-37); SGPT 285 U/L (30-65); TOTAL BILIRUBIN 0.5 mg/dL (<0.1-1.0); TROPONIN-I <0.06 ng/mL (<0.06)
[2018-04-06 11:33] LABS: INR 1.7; PROTIME 17.4 Seconds (9.3-11.4)
[2018-04-06 12:48] VITALS: BP 168/86
[2018-04-06 13:17] VITALS: BP 165/84
[2018-04-06 14:05] VITALS: BP 158/92
[2018-04-06 16:28] VITALS: BP 163/94
[2018-04-06] MEDS ORDERED: ATORVASTATIN CA40 MG PO (18:13)
[2018-04-06] MEDS ORDERED: AMLODIPINE BESY10 MG PO (18:13)
[2018-04-06] MEDS ORDERED: COMBIGAN EYE DR10 ML OPHTHALMIC (18:14)
[2018-04-06] MEDS ORDERED: MELATIN3 MG PO (18:15)
[2018-04-06] MEDS ORDERED: LASIX 20 MG TAB20 MG PO (18:15)
[2018-04-06] MEDS ORDERED: COREG6.25 MG PO (18:17)
[2018-04-06] MEDS ORDERED: AZOPT OPHTH1 %/10 M1 OPHTHALMIC (18:17)
[2018-04-06] MEDS ORDERED: HYDROXYZINE HCL25 M1 PO (18:18)
[2018-04-06] MEDS ORDERED: PROTONIX40 M2 PO (18:18)
[2018-04-06] MEDS ORDERED: OYSTER SHELL C500 MG PO (18:19)
[2018-04-06] MEDS ORDERED: SYNTHROID25 MC1 PO (18:19)
[2018-04-06] MEDS ORDERED: CLARITIN10 MG PO (18:20)
[2018-04-06] MEDS ORDERED: IRON325 PO (18:20)
[2018-04-06] MEDS ORDERED: VITAMINC500 PO (18:21)
[2018-04-06] MEDS ORDERED: SENNA8.6 MG PO (18:21)
[2018-04-06] MEDS ORDERED: PROCRIT20000 UNIT SUBQ (18:22)
[2018-04-06] MEDS ORDERED: PROZAC20 MG PO (18:22)
[2018-04-06] MEDS ORDERED: AUGMENTIN 875-1 EACH PO (18:24)
[2018-04-06] MEDS ORDERED: SANTYL OINTMENT30 G1 TOP (18:24)
[2018-04-06 19:30] VITALS: BP 143/86
[2018-04-07 04:14] VITALS: BP 167/92
[2018-04-07 05:45] LABS: ABSOLUTE NEUTROPHILS 3.6 thou/uL (1.4-8.2); BASOPHILS 0.9 % (0.0-2.0); EOSINOPHILS 5.7 % (0.0-3.0); HEMATOCRIT 31.4 % (42.0-52.0); HEMOGLOBIN 10.1 gm/dL (14.0-18.0); LYMPHOCYTES 15.1 % (24.0-44.0); MCH 25.9 pg (26.0-34.0); MCHC 32.1 g/dL (28.0-37.0); MCV 80.7 fL (80.0-100.0); MONOCYTES 10.2 % (1.0-8.0); PLATELET COUNT 206 thou/uL (150-400); POLYS 68.1 % (36.0-66.0); RBC 3.89 mil/uL (4.50-6.00); WBC 5.3 thou/uL (4.0-11.0)
[2018-04-07 05:58] LABS: CALCIUM 9.7 mg/dL (8.5-10.1); CREATININE 1.9 mg/dL (0.7-1.3); MAGNESIUM 2.4 mg/dL (1.8-2.4)
[2018-04-07 06:35] VITALS: BP 146/97
[2018-04-07 07:40] VITALS: BP 163/90
[2018-04-07 11:11] VITALS: BP 153/87
[2018-04-07 15:34] VITALS: BP 153/87
[2018-04-07 19:33] VITALS: BP 155/88
[2018-04-08 03:28] VITALS: BP 155/90
[2018-04-08 07:20] VITALS: BP 92/46
[2018-04-08 08:01] VITALS: BP 161/81
[2018-04-08 08:32] LABS: INR 1.5
[2018-04-08 12:12] VITALS: BP 167/96
[2018-04-08 13:56] LABS: CLARITY SLIGHTLY CLOUDY; COLOR YELLOW; SOURCE RIGHT CHEST; TOTAL VOLUME 62 mL
[2018-04-08 14:10] LABS: BF NUCLEATED CELLS 129; BF RBC 447
[2018-04-08 15:15] LABS: BF MACROPHAGE 45; BF NEUTROPHILS 7
[2018-04-08 15:45] LABS: ABSOLUTE NEUTROPHILS 3.1 thou/uL (1.4-8.2); BASOPHILS 0.9 % (0.0-2.0); HEMATOCRIT 30.9 % (42.0-52.0); HEMOGLOBIN 9.9 gm/dL (14.0-18.0); LYMPHOCYTES 15.7 % (24.0-44.0); MCH 25.9 pg (26.0-34.0); MCV 80.9 fL (80.0-100.0); MONOCYTES 5.6 % (1.0-8.0); PLATELET COUNT 212 thou/uL (150-400); POLYS 69.8 % (36.0-66.0); RBC 3.82 mil/uL (4.50-6.00); RDW 17.9 % (10.5-14.5); WBC 4.4 thou/uL (4.0-11.0)
[2018-04-08 16:48] VITALS: BP 146/82
[2018-04-08 20:20] VITALS: BP 139/78
[2018-04-09 05:25] LABS: ABSOLUTE NEUTROPHILS 3.4 thou/uL (1.4-8.2); BASOPHILS 0.9 % (0.0-2.0); EOSINOPHILS 7.4 % (0.0-3.0); HEMATOCRIT 30.4 % (42.0-52.0); HEMOGLOBIN 9.7 gm/dL (14.0-18.0); LYMPHOCYTES 15.8 % (24.0-44.0); MCH 25.7 pg (26.0-34.0); MCHC 31.8 g/dL (28.0-37.0); MCV 80.9 fL (80.0-100.0); MONOCYTES 7.9 % (1.0-8.0); PLATELET COUNT 208 thou/uL (150-400); RBC 3.76 mil/uL (4.50-6.00); RDW 18.1 % (10.5-14.5)
[2018-04-09 05:38] LABS: ALBUMIN 2.2 g/dL (3.4-5.0); CALCIUM 9.2 mg/dL (8.5-10.1); CREATININE 2.2 mg/dL (0.7-1.3); POTASSIUM 5.5 mmol/L (3.5-5.1); TOTAL BILIRUBIN 0.5 mg/dL (<0.1-1.0); TOTAL PROTEIN 7.3 g/dL (6.4-8.2)
[2018-04-09 06:00] VITALS: BP 148/85
[2018-04-09 07:52] VITALS: BP 156/80
[2018-04-09 08:31] LABS: ANISOCYTOSIS 1+
[2018-04-09 16:32] VITALS: BP 142/75
[2018-04-09 17:10] LABS: BODY FLUID ALBUMIN 0.8 g/dL (()); BODY FLUID AMYLASE 22 U/L (()); BODY FLUID GLUCOSE 97 mg/dL (()); BODY FLUID LDH 56 IU/L (()); BODY FLUID PROTEIN 1.6 g/dL (())
[2018-04-09 20:50] VITALS: BP 140/82
[2018-04-10 05:00] VITALS: BP 148/85
[2018-04-10 07:44] VITALS: BP 149/78
[2018-04-10 11:48] VITALS: BP 141/72
[2018-04-10 19:50] VITALS: BP 153/86
[2018-04-11 04:30] VITALS: BP 164/94
[2018-04-11 05:48] LABS: ABSOLUTE NEUTROPHILS 2.3 thou/uL (1.4-8.2); BASOPHILS 1.1 % (0.0-2.0); EOSINOPHILS 12.2 % (0.0-3.0); HEMATOCRIT 31.7 % (42.0-52.0); HEMOGLOBIN 10.2 gm/dL (14.0-18.0); LYMPHOCYTES 22.1 % (24.0-44.0); MCHC 32.1 g/dL (28.0-37.0); MONOCYTES 9.8 % (1.0-8.0); PLATELET COUNT 207 thou/uL (150-400); POLYS 54.8 % (36.0-66.0); RBC 3.91 mil/uL (4.50-6.00); RDW 18.6 % (10.5-14.5); WBC 4.1 thou/uL (4.0-11.0)
[2018-04-11 06:07] LABS: ALBUMIN 2.2 g/dL (3.4-5.0); CALCIUM 9.2 mg/dL (8.5-10.1); CREATININE 2.1 mg/dL (0.7-1.3); MAGNESIUM 2.3 mg/dL (1.8-2.4); POTASSIUM 5.9 mmol/L (3.5-5.1); TOTAL BILIRUBIN 0.4 mg/dL (<0.1-1.0); TOTAL PROTEIN 7.6 g/dL (6.4-8.2)
[2018-04-11 08:06] VITALS: BP 172/98
[2018-04-11 16:12] VITALS: BP 159/90
[2018-04-11 20:54] VITALS: BP 161/94
[2018-04-12 03:50] VITALS: BP 156/96
[2018-04-12 05:35] LABS: CALCIUM 8.6 mg/dL (8.5-10.1); CREATININE 1.9 mg/dL (0.7-1.3); MAGNESIUM 2.2 mg/dL (1.8-2.4); POTASSIUM 5.9 mmol/L (3.5-5.1)
[2018-04-12 07:17] VITALS: BP 174/95
[2018-04-12 08:34] VITALS: BP 174/95
[2018-04-12 12:54] VITALS: BP 174/95
== END 2018-04-12 14:28 | disposition home health service (06) | DRG 444 ==
LOC: ER 10:03 → EROBS 12:10 → 3W 12:10 → ENTRNSPT 04-12 14:09 → EDTRNSPTSTS 04-12 14:18 → 3W 04-12 14:28
PROVIDERS: Family Medicine; Internal Medicine; Nurse Practitioner; Student in an Organized Health Care Education/Training Program; Surgery
PROC: 0W993ZZ Drainage of Right Pleural Cavity, Percutaneous Approach (ICD-10-PCS; principal; 2018-04-08)
DX: K80.00 Calculus of gallbladder with acute cholecystitis without obstruction (principal); I50.33 Acute on chronic diastolic (congestive) heart failure; E43 Unspecified severe protein-calorie malnutrition; N17.9 Acute kidney failure, unspecified; I13.0 Hypertensive heart and chronic kidney disease with heart failure and stage 1 through stage 4 chronic kidney disease, or unspecified chronic kidney disease; I42.9 Cardiomyopathy, unspecified; J90 Pleural effusion, not elsewhere classified; E11.51 Type 2 diabetes mellitus with diabetic peripheral angiopathy without gangrene; M19.90 Unspecified osteoarthritis, unspecified site; I25.10 Atherosclerotic heart disease of native coronary artery without angina pectoris; D63.8 Anemia in other chronic diseases classified elsewhere; E78.5 Hyperlipidemia, unspecified; E11.22 Type 2 diabetes mellitus with diabetic chronic kidney disease; N18.3 Chronic kidney disease, stage 3 (moderate); Z89.512 Acquired absence of left leg below knee; I25.2 Old myocardial infarction; E87.5 Hyperkalemia; Z79.84 Long term (current) use of oral hypoglycemic drugs; Z79.899 Other long term (current) drug therapy; Z79.4 Long term (current) use of insulin; Z79.82 Long term (current) use of aspirin; Z95.828 Presence of other vascular implants and grafts; Z95.5 Presence of coronary angioplasty implant and graft
CPT/HCPCS: 10879

== ENCOUNTER → 2018-04-14 | Outpatient (CLI) | payer OTHER ==
[~2018-04-14] MED LIST changes: +AMLODIPINE BESY10 MG PO; +ATORVASTATIN CA40 MG PO; +CLARITIN10 MG PO; +COREG6.25 MG PO; +HYDROXYZINE HCL25 M1 PO; +LASIX 20 MG TAB20 MG PO; +MELATIN3 MG PO; +OYSTER SHELL C500 MG PO; +PROCRIT20000 UNIT SUBQ; +PROTONIX40 M2 PO; +PROZAC20 MG PO; +SANTYL OINTMENT30 G1 TOP; +SENNA8.6 MG PO; +SYNTHROID25 MC1 PO; +VITAMINC500 PO
== END ==
LOC: HYPER 06:19
DX: T87.89 Other complications of amputation stump (principal); E78.00 Pure hypercholesterolemia, unspecified; E10.52 Type 1 diabetes mellitus with diabetic peripheral angiopathy with gangrene; E10.42 Type 1 diabetes mellitus with diabetic polyneuropathy; I10 Essential (primary) hypertension; Z89.511 Acquired absence of right leg below knee; Z79.4 Long term (current) use of insulin; Z95.5 Presence of coronary angioplasty implant and graft; Y83.5 Amputation of limb(s) as the cause of abnormal reaction of the patient, or of later complication, without mention of misadventure at the time of the procedure

== ENCOUNTER → 2018-04-19 | Outpatient (CLI) | payer OTHER ==
--- NOTE | ~2018-04-19 | PATH ---
[facility] [place] [address] PATHOLOGY RPT PROCEDURE Name: GINA PALMER Room #: REG LEANDRO Bush#: [id number] Admission: 04/19/18 Date of : 46 Discharge: Report #: [id number] Path Case #: [id number] Note [facility] Accession Number: [id number] TESTS RESULT FLAG UNITS REF RANGE LAB Clinician Provided Cytology Information No. of containers..01 Other (Miscellaneous) Source: PLEURAL DIAGNOSIS: 02 PLEURAL INCONCLUSIVE. MESOTHELIAL CELLS ARE PRESENT. THIS INTERPRETATION INCLUDES EVALUATION OF A CELL BLOCK. COMMENT; FEW ATYPICAL CELLS WERE PRESENT. THE IMMUNOPEROXIDASE STAIN AURELIA-EP4 IS NEGATIVE AND CALRETININ IS POSITIVE. THEY ARE LIKELY REACTIVE MESOTHELIAL CELLS. THERE ARE ALSO ABUNDANT LYMPHOCYTES PRESENT. IF LYMPHOPROLIFERATIVE DISORDER IS SUSPECTED A FLOW IS INDICATED ON FUTURE STUDIES. Signed out by: 02 Juan Washington MD, Pathologist NPI- [id number] Performed by: 01 Rocio Dixon, Dental Tech ([facility]) Gross description: 01 17ML, YELLOW, CLEAR /LCS FLAG LEGEND: L-Low Normal,H-High Normal,LL-Alert Low,HH-Alert High <-Panic Low,>-Panic High,A-Abnormal,AA-Critical Abnormal Performed at: [address] [address] Juancarlos Mccauley MD, [address] [address] Sage Becerra MD, Performed at: [address] [place] [id number] MD Juancarlos Mccauley MD Phone: [phone]
[2018-04-19 13:06] LABS: HEMATOCRIT 30.3 % (42.0-52.0); HEMOGLOBIN 9.8 gm/dL (14.0-18.0); MCHC 32.5 g/dL (28.0-37.0); MCV 80.1 fL (80.0-100.0); RBC 3.78 mil/uL (4.50-6.00); RDW 18.6 % (10.5-14.5); WBC 3.5 thou/uL (4.0-11.0)
[2018-04-19 13:13] LABS: CALCIUM 8.4 mg/dL (8.5-10.1); CREATININE 0.3 mg/dL (0.7-1.3); POTASSIUM 5.4 mmol/L (3.5-5.1)
[2018-04-19 13:22] LABS: INR 1.1
[2018-04-19 15:08] LABS: CLARITY HAZY; COLOR YELLOW; SOURCE CHEST; TOTAL VOLUME 65 mL
[2018-04-19 15:11] LABS: BF NUCLEATED CELLS 228; BF RBC 2863
[2018-04-19 16:26] LABS: BF MACROPHAGE 34; BF NEUTROPHILS 5
[2018-04-20 10:07] LABS: BODY FLUID ALBUMIN 1.2 g/dL (()); BODY FLUID AMYLASE 27 U/L (()); BODY FLUID GLUCOSE 150 mg/dL (()); BODY FLUID LDH 68 IU/L (()); BODY FLUID PROTEIN 1.9 g/dL (())
[2018-04-21 09:29] LABS: SOURCE LEFT CHEST
== END ==
LOC: ULTRA 12:26
PROVIDERS: Family Medicine
DX: J90 Pleural effusion, not elsewhere classified (principal)

== ENCOUNTER → 2018-04-20 | Outpatient (CLI) | payer OTHER ==
--- NOTE | ~2018-04-20 | PATH ---
[facility] [address] [place] [address] PATHOLOGY RPT PROCEDURE Name: GINA PALMER Room #: REG [facility]#: [id number] Admission: 04/20/18 Date of : 46 Discharge: Report #: [id number] Path Case #: [id number] Note [facility] Accession Number: [id number] TESTS RESULT FLAG UNITS REF RANGE LAB Clinician Provided Cytology Information No. of containers..01 Other (Miscellaneous) Source: RIGHT PLEURAL DIAGNOSIS: 02 RIGHT PLEURAL NEGATIVE FOR MALIGNANT CELLS. MESOTHELIAL CELLS ARE PRESENT. THIS INTERPRETATION INCLUDES EVALUATION OF A CELL BLOCK. Signed out by: 02 Juan Washington MD, Pathologist NPI- [id number] Performed by: 01 Angelika Hennessy, Automatic Packer Operator ([facility]) Gross description: 01 13ML, YELLOW, CLEAR /LCS FLAG LEGEND: L-Low Normal,H-High Normal,LL-Alert Low,HH-Alert High <-Panic Low,>-Panic High,A-Abnormal,AA-Critical Abnormal Performed at: [address] [place] [address] Juancarlos Mccauley MD, [address] [place] [id number] Sage Becerra MD, Specimen Comment: A duplicate report has been generated due to demographic updates. Performed at: [address], [place], [place] [id number] MD Juancarlos Mccauley MD Phone: [phone]
[2018-04-20 12:41] LABS: COLOR YELLOW; SOURCE CHEST FLUID; TOTAL VOLUME 60 mL
[2018-04-20 12:42] LABS: CLARITY HAZY
[2018-04-20 13:35] LABS: BF NUCLEATED CELLS 250; BF RBC 1040
[2018-04-20 14:53] LABS: BF NEUTROPHILS 8
[2018-04-21 09:29] LABS: SOURCE CHEST
[2018-04-21 13:09] LABS: BODY FLUID PROTEIN 1.7 g/dL (())
[2018-04-22 15:11] LABS: BODY FLUID ALBUMIN 1.1 g/dL (()); BODY FLUID AMYLASE 28 U/L (()); BODY FLUID GLUCOSE 145 mg/dL (()); BODY FLUID LDH 72 IU/L (())
== END | disposition home or self-care (01) ==
LOC: ULTRA 10:52
PROVIDERS: Family Medicine
DX: J90 Pleural effusion, not elsewhere classified (principal); I13.0 Hypertensive heart and chronic kidney disease with heart failure and stage 1 through stage 4 chronic kidney disease, or unspecified chronic kidney disease; E11.22 Type 2 diabetes mellitus with diabetic chronic kidney disease; I50.9 Heart failure, unspecified; N18.9 Chronic kidney disease, unspecified; I25.10 Atherosclerotic heart disease of native coronary artery without angina pectoris; K21.9 Gastro-esophageal reflux disease without esophagitis; Z98.890 Other specified postprocedural states; Z79.899 Other long term (current) drug therapy

== ENCOUNTER → 2018-04-28 | Outpatient (CLI) | payer OTHER | LOC: HYPER 06:34 | DX: T81.31XD Disruption of external operation (surgical) wound, not elsewhere classified, subsequent encounter (principal); E10.42 Type 1 diabetes mellitus with diabetic polyneuropathy; E10.51 Type 1 diabetes mellitus with diabetic peripheral angiopathy without gangrene; E78.00 Pure hypercholesterolemia, unspecified; Z79.4 Long term (current) use of insulin; Z89.512 Acquired absence of left leg below knee; Z89.421 Acquired absence of other right toe(s); Y83.8 Other surgical procedures as the cause of abnormal reaction of the patient, or of later complication, without mention of misadventure at the time of the procedure ==

== ENCOUNTER 2018-05-10 09:41 | Emergency (ER) | payer OTHER ==
[~2018-05-10] VITALS: Ht 185.4 cm; Wt 74.8 kg
--- NOTE | ~2018-05-10 | EKG ---
[address] [address] ELECTROCARDIOGRAM REPORT Name: GINA PALMER [id number] Admission: 05/10/18 Attend Phys: Discharge: 05/10/18 Date of : 46 Report #: [id number] THIS REPORT FOR: //name// [facility] ED Test Date: 2018-05-10 Test Time: 09:58:38 Pat Name: GINA PALMER Department: Room: 170 Gender: M Management Nurse Rn: ZORAIDA : 1950 Requested By: Denny Mccray Order Number: [id number] MD: Cisco Painter Measurements Intervals [place] Rate: 47 P: 39 OH: 255 QRS: 18 QRSD: 96 T: 37 QT: 511 QTc: 452 Interpretive Statements Sinus bradycardia Mildly prolonged [place] interval Low voltage, extremity leads Baseline wander Nonspecific ST-T wave changes No significant changes from ECG 04/06/2018 10:19:25 Electronically Signed On 05-10-2018 13:27:40 RUG HOOKER HAND by Cisco Painter [email or web address] <ELECTRONICALLY SIGNED> By: Cisco Painter MD 05/10/18 1327 0958 0958 Cisco Painter MD /EPI
[2018-05-10 09:45] VITALS: BP 91/41
[2018-05-10 10:24] LABS: CALCIUM 9.2 mg/dL (8.5-10.1); CREATININE 2.5 mg/dL (0.7-1.3); POTASSIUM 5.4 mmol/L (3.5-5.1)
[2018-05-10 10:30] LABS: ALBUMIN 2.6 g/dL (3.4-5.0); DIRECT BILIRUBIN 0.2 mg/dL (<0.1-0.3); TOTAL BILIRUBIN 0.3 mg/dL (<0.1-1.0); TOTAL PROTEIN 7.6 g/dL (6.4-8.2)
[2018-05-10 10:39] LABS: HEMATOCRIT 28.8 % (42.0-52.0); HEMOGLOBIN 9.4 gm/dL (14.0-18.0); MCH 25.8 pg (26.0-34.0); MCHC 32.6 g/dL (28.0-37.0); MCV 79.2 fL (80.0-100.0); PLATELET COUNT 139 thou/uL (150-400); RBC 3.64 mil/uL (4.50-6.00); WBC 7.2 thou/uL (4.0-11.0)
[2018-05-10 10:59] LABS: ABSOLUTE NEUTROPHILS 5.5 thou/uL (1.4-8.2)
[2018-05-10 11:01] LABS: ANISOCYTOSIS 1+; LARGE PLATELETS RARE
[2018-05-10] MEDS ORDERED: HYDRALAZINE 10M10 MG PO (11:14)
[2018-05-10] MEDS ORDERED: NOVOLOG100 UNIT/1 SUBQ (11:15)
[2018-05-10] MEDS ORDERED: COUMADIN 1MG TAB1 M1 PO (11:19)
[2018-05-10 11:22] LABS: URINE BILIRUBIN NEGATIVE (Negative); URINE BLOOD NEGATIVE (Negative); URINE CLARITY CLEAR; URINE COLOR YELLOW; URINE GLUCOSE-RANDOM* NEGATIVE (Negative); URINE KETONES NEGATIVE (Negative); URINE LEUKOCYTES NEGATIVE (Negative); URINE NITRITE NEGATIVE (Negative); URINE PROTEIN (DIPSTICK) 2+ (Negative); URINE SPECIFIC GRAVITY 1.025 (1.005-1.035); URINE UROBILINOGEN 0.2 E.U./dl (0.2-1.0)
[2018-05-10 11:29] VITALS: BP 111/60
[2018-05-10 11:31] LABS: BACTERIA 1-9 Few /HPF (None Seen); SQUAMOUS None Seen /LPF (0-3); URINE RBC None Seen /HPF (0-2); URINE WBC 0-5 Rare /HPF (0-5)
[2018-05-10 11:32] LABS: CASTS None Seen /LPF (None Seen); CRYSTALS None Seen /LPF (None Seen)
[2018-05-10 11:40] VITALS: BP 106/59
== END 2018-05-10 12:48 | disposition left against medical advice (07) ==
LOC: ER 09:41 → EROBS 11:18 → ER 11:18
PROVIDERS: Nurse Practitioner
DX: I13.0 Hypertensive heart and chronic kidney disease with heart failure and stage 1 through stage 4 chronic kidney disease, or unspecified chronic kidney disease (principal); I50.9 Heart failure, unspecified; I95.9 Hypotension, unspecified; N17.9 Acute kidney failure, unspecified; R68.0 Hypothermia, not associated with low environmental temperature; E87.5 Hyperkalemia; R94.5 Abnormal results of liver function studies; Z89.612 Acquired absence of left leg above knee; N18.3 Chronic kidney disease, stage 3 (moderate); E11.22 Type 2 diabetes mellitus with diabetic chronic kidney disease; M19.90 Unspecified osteoarthritis, unspecified site; I25.10 Atherosclerotic heart disease of native coronary artery without angina pectoris; E78.5 Hyperlipidemia, unspecified; E11.621 Type 2 diabetes mellitus with foot ulcer; Z95.5 Presence of coronary angioplasty implant and graft; Z86.2 Personal history of diseases of the blood and blood-forming organs and certain disorders involving the immune mechanism; E78.00 Pure hypercholesterolemia, unspecified; Z79.4 Long term (current) use of insulin

== ENCOUNTER 2018-05-30 02:47 | Inpatient (IN) | payer OTHER ==
[~2018-05-30] VITALS: Ht 185.4 cm; Wt 76.7 kg
--- NOTE | ~2018-05-30 | HC ---
[facility] [place] [address] CONSULTATION Name: ESTELAGINA D Room #: 358-P ADM IN M.R.#: [id number] Admission: 05/30/18 Attend Phys: German Lane MD Discharge: Date of : 48 Report #: [id number] THIS REPORT FOR: //name// CC: German Lane DATE OF SERVICE: 05/31/2018 REASON FOR CONSULTATION: Nonhealing left below knee amputation stump with incisional separation. HISTORY OF PRESENT ILLNESS: The patient is a 67-year-old gentleman admitted to the Emergency Department to [facility] after he had a choking episode with hypoxia and was unresponsive. This gentleman had undergone below-knee amputation on the left due to diabetic complications and peripheral vascular disease on 12/07/2017 with details of that surgery unavailable to me. The patient was admitted for his medical condition. Wound care was consulted due to the fact that it is seen that his left below knee amputation stump is nonhealed with separation of the incision line. PAST MEDICAL HISTORY: 1. Diabetes mellitus type 2. 2. Peripheral vascular disease. 3. Orthostatic hypotension. 4. History of right toe amputations and hyperbaric oxygen 2016. 5. Coronary artery disease with stents 12/2014, ejection fraction 55%-60%. 6. History of osteomyelitis, right foot. 7. History of myocardial infarction with angioplasty. MEDICATIONS: Include melatonin, Protonix, Synthroid, iron, Xalatan, timolol eye drops, AmLactin, Coreg, Lasix, Neurontin, Lantus and Humalog insulin, Lipitor, Claritin, Ativan, MiraLax, Coumadin 4 mg daily. REVIEW OF SYSTEMS: Noncontributory. PHYSICAL EXAMINATION: GENERAL: Shows a chronically ill-appearing gentleman who is alert and responsive, cooperative. HEENT: Mucous membranes are moist. NECK: Supple. HEART: Shows regular rate and rhythm. ABDOMEN: Soft. EXTREMITIES: Shows a left below knee amputation site with a healthy fleshy stump. On the dorsal aspect of the stump at the incisional line, there is incisional separation anteriorly with 2 open wounds, one measuring approximately 2 x 0.8 cm and the more medial one measuring 3 x 0.8 cm. There is granulation tissue exposed and some superficial slough, which is easily swept away with [facility] [address] [place] [address] CONSULTATION Name: GINA PALMER Room #: 358-P [facility] IN .R.#: [id number] Admission: 05/30/18 Attend Phys: German Lane MD Discharge: Date of : 48 Report #: [id number] gauze exposing healthy pink base. No evidence of tunneling or infection. IMPRESSION: 1. Diabetes mellitus type 2. 2. Peripheral vascular disease. 3. Status post left below knee amputation. 4. Complication of left below knee amputation stump with incisional separation and nonhealing. PLAN: We will dress the wound with Nat and foam border to maximize nutrition. Wound care team will follow and the patient can follow up after discharge in [facility]. <ELECTRONICALLY SIGNED> By: Conner Lagunas MD 06/01/18 1244 1644 1849 Conner Lagunas MD /nt
--- NOTE | ~2018-05-30 | EKG ---
[address] [place] [place] [address] ELECTROCARDIOGRAM REPORT Name: GINA PALMER Room #: 358-P ADM IN M.R.#: [id number] Admission: 05/30/18 Attend Phys: German Lane MD Discharge: Date of : 48 Report #: [id number] THIS REPORT FOR: //name// [facility] ED Test Date: 2018-05-30 Test Time: 02:49:11 Pat Name: GINA PALMER Department: Room: 358 Gender: M Associate Professor Of Physics: TWILA : 1950 Requested By: Radha Moore Order Number: [id number] MD: Cisco Painter Measurements Intervals [place] Rate: 51 P: 37 CT: 258 QRS: 42 QRSD: 102 T: 46 QT: 545 QTc: 503 Interpretive Statements Sinus rhythm Prolonged CT interval left atrial enlargement Borderline low voltage Compared to ECG 05/10/2018 09:58:38 no significant changes Electronically Signed On 05-30-2018 23:46:30 TUBE DRAWING SUPERVISOR by Cisco Painter [email or web address] <ELECTRONICALLY SIGNED> By: Cisco Painter MD 05/30/18 2346 0249 0249 Cisco Painter MD /EPI
[~2018-05-30 02:47] MED LIST changes: +COUMADIN 1MG TAB1 M1 PO; +HYDRALAZINE 10M10 MG PO
[2018-05-30 03:07] LABS: HEMATOCRIT 26.1 % (42.0-52.0); HEMOGLOBIN 8.4 gm/dL (14.0-18.0); MCH 25.4 pg (26.0-34.0); MCV 79.5 fL (80.0-100.0); PLATELET COUNT 193 thou/uL (150-400); RBC 3.29 mil/uL (4.50-6.00); RDW 20.2 % (10.5-14.5); WBC 2.2 thou/uL (4.0-11.0)
[2018-05-30 03:16] LABS: CALCIUM 8.8 mg/dL (8.5-10.1); CREATININE 2.1 mg/dL (0.7-1.3); POTASSIUM 4.6 mmol/L (3.5-5.1)
[2018-05-30 03:40] LABS: ABSOLUTE NEUTROPHILS 1.4 thou/uL (1.4-8.2)
[2018-05-30 03:41] LABS: ANISOCYTOSIS 2+; SCHISTOCYTES OCCASIONAL
[2018-05-30] MEDS ORDERED: ASPIRIN325 PO (04:28)
[2018-05-30] MEDS ORDERED: VITAMINC500 PO (04:29)
[2018-05-30] MEDS ORDERED: AMLACTIN400 GM TOP (04:29)
[2018-05-30] MEDS ORDERED: ATROPINE SULFATE2 ML OPHTHALMIC (04:30)
[2018-05-30] MEDS ORDERED: CALCIUM 500 +1 EAC5 PO (04:34)
[2018-05-30] MEDS ORDERED: CARVEDILOL12.5 MG PO (04:34)
[2018-05-30] MEDS ORDERED: COMBIGAN EYE DR10 ML OPHTHALMIC (04:36)
[2018-05-30] MEDS ORDERED: QC ANTI-ITCH CR28 GM TOP (04:39)
[2018-05-30] MEDS ORDERED: LASIX 40 MG TAB40 M2 PO (04:40)
[2018-05-30] MEDS ORDERED: NEURONTIN 300300 M1 PO (04:41)
[2018-05-30] MEDS ORDERED: [UNRECOGNIZED DRUG - OTHER] IV (04:43)
[2018-05-30] MEDS ORDERED: LANTUS100 UNIT/M SUBQ (04:44)
[2018-05-30] MEDS ORDERED: HUMALOG100 UNIT/1 SUBQ (04:45)
[2018-05-30] MEDS ORDERED: ATORVASTATIN CA40 MG PO (04:46)
[2018-05-30] MEDS ORDERED: CLARITIN10 MG PO (04:48)
[2018-05-30] MEDS ORDERED: ATIVAN0.5 MG PO (04:48)
[2018-05-30] MEDS ORDERED: MIRALAX17 GM PO (04:49)
[2018-05-30] MEDS ORDERED: PREDNISOLONE ACE5 ML OPHTHALMIC (04:51)
[2018-05-30] MEDS ORDERED: [UNRECOGNIZED DRUG - CODE] INTRADERM (04:53)
[2018-05-30] MEDS ORDERED: SENNA8.6 MG PO (04:54)
[2018-05-30] MEDS ORDERED: SODIUM CHLORIDE NASAL (04:55)
[2018-05-30] MEDS ORDERED: COUMADIN 4 MG TA4 M1 PO (04:56)
[2018-05-30 07:34] VITALS: BP 144/81
[2018-05-30 08:05] VITALS: BP 142/76
[2018-05-30 09:35] LABS: INR 1.6; PROTIME 16.6 Seconds (9.3-11.4)
[2018-05-30 11:12] VITALS: BP 147/90
[2018-05-30 16:10] VITALS: BP 142/66
[2018-05-30 19:57] VITALS: BP 147/73
[2018-05-31 03:26] VITALS: BP 139/71
[2018-05-31 09:33] VITALS: BP 147/75
[2018-05-31 13:18] VITALS: BP 167/99
[2018-05-31 16:50] VITALS: BP 151/88
[2018-05-31 19:01] VITALS: BP 168/75
[2018-06-01 04:00] VITALS: BP 185/97
[2018-06-01 06:37] LABS: HEMATOCRIT 27.4 % (42.0-52.0); MCV 78.9 fL (80.0-100.0); RBC 3.47 mil/uL (4.50-6.00); RDW 20.7 % (10.5-14.5); WBC 5.2 thou/uL (4.0-11.0)
[2018-06-01 07:13] LABS: ALBUMIN 2.4 g/dL (3.4-5.0); CALCIUM 9.6 mg/dL (8.5-10.1); CREATININE 2.2 mg/dL (0.7-1.3); POTASSIUM 5.3 mmol/L (3.5-5.1); TOTAL BILIRUBIN 0.4 mg/dL (<0.1-1.0)
[2018-06-01 07:21] VITALS: BP 167/92
[2018-06-01 12:19] VITALS: BP 154/61
[2018-06-01 15:41] VITALS: BP 163/89
[2018-06-01 17:53] LABS: URINE BILIRUBIN NEGATIVE (Negative); URINE BLOOD TRACE (Negative); URINE CLARITY CLEAR; URINE COLOR YELLOW; URINE GLUCOSE-RANDOM* NEGATIVE (Negative); URINE KETONES NEGATIVE (Negative); URINE LEUKOCYTES-REFLEX NEGATIVE (Negative); URINE NITRITE-REFLEX NEGATIVE (Negative); URINE PROTEIN (DIPSTICK) 2+ (Negative); URINE SPECIFIC GRAVITY 1.025 (1.005-1.035); URINE UROBILINOGEN 0.2 E.U./dl (0.2-1.0)
[2018-06-01 18:02] LABS: BACTERIA-REFLEX None Seen /HPF (None Seen); CASTS None Seen /LPF (None Seen); CRYSTALS None Seen /LPF (None Seen); MUCUS None Seen strn/LPF (None Seen); SQUAMOUS 0-3 Few /LPF (0-3); URINE RBC 0-2 Rare /HPF (0-2); URINE WBC-REFLEX None Seen /HPF (0-5)
[2018-06-01 18:14] LABS: AMP/METHAMP Negative (Negative); BARBITURATES Negative (Negative); BENZODIAZEPINES Negative (Negative); COCAINE Negative (Negative); METHADONE Negative (Negative); OPIATES Negative (Negative); PCP Negative (Negative)
[2018-06-01 19:32] VITALS: BP 151/84
[2018-06-01 23:44] VITALS: BP 171/94
[2018-06-02 03:56] VITALS: BP 176/78
[2018-06-02 07:43] VITALS: BP 182/102
[2018-06-02] MEDS ORDERED: AUGMENTIN 875-1 EACH PO (09:39)
[2018-06-02 09:54] VITALS: BP 182/102
[2018-06-02 12:10] VITALS: BP 182/102
== END 2018-06-02 13:43 | disposition home health service (06) | DRG 177 ==
LOC: ER 02:47 → 3W 06:31 → EROBS 06:31 → 3W 08:20 → ENTRNSPT 06-02 11:59 → EDTRNSPTSTS 06-02 12:01 → 3W 06-02 13:43
PROVIDERS: Emergency Medicine; Family Medicine
DX: J69.0 Pneumonitis due to inhalation of food and vomit (principal); G93.41 Metabolic encephalopathy; M19.90 Unspecified osteoarthritis, unspecified site; I25.10 Atherosclerotic heart disease of native coronary artery without angina pectoris; E78.5 Hyperlipidemia, unspecified; N18.3 Chronic kidney disease, stage 3 (moderate); E11.22 Type 2 diabetes mellitus with diabetic chronic kidney disease; E11.51 Type 2 diabetes mellitus with diabetic peripheral angiopathy without gangrene; I12.9 Hypertensive chronic kidney disease with stage 1 through stage 4 chronic kidney disease, or unspecified chronic kidney disease; Z89.512 Acquired absence of left leg below knee; Z89.421 Acquired absence of other right toe(s); I25.2 Old myocardial infarction; Z95.5 Presence of coronary angioplasty implant and graft; Z87.81 Personal history of (healed) traumatic fracture; Z79.01 Long term (current) use of anticoagulants; Z79.4 Long term (current) use of insulin; Z79.82 Long term (current) use of aspirin; Z79.899 Other long term (current) drug therapy; Z23 Encounter for immunization
CPT/HCPCS: 10879

== ENCOUNTER 2018-06-05 11:20 | Emergency (ER) | payer OTHER ==
[~2018-06-05] VITALS: Ht 185.4 cm; Wt 74.8 kg
--- NOTE | ~2018-06-05 | EKG ---
[place] [address] [facility] [place] [address] ELECTROCARDIOGRAM REPORT Name: GINA PALMER [id number] Admission: 06/05/18 Attend Phys: Discharge: 06/05/18 Date of : 46 Report #: [id number] THIS REPORT FOR: //name// [facility] ED Test Date: 2018-06-05 Test Time: 11:31:07 Pat Name: GINA PALMER Department: Room: Gender: M Med Peds: JC : 1950 Requested By: Car Campoverde Order Number: [id number] MD: Guanaco Avalos Measurements Intervals [place] Rate: 54 P: 71 ME: 189 QRS: 53 QRSD: 105 T: 70 QT: 497 QTc: 472 Interpretive Statements Sinus rhythm Borderline low voltage, extremity leads Probable left ventricular hypertrophy Compared to ECG 05/30/2018 02:49:11 First degree AV block no longer present Atrial abnormality no longer present Electronically Signed On 06-06-2018 10:21:39 MEMS DEVICE SCIENTIST by Guanaco Avalos [email or web address] <ELECTRONICALLY SIGNED> By: Guanaco Avalos MD 06/06/18 1021 1130 30 Guanaco Avalos MD /MICHAEL
[~2018-06-05 11:20] MED LIST changes: +AMLACTIN400 GM TOP; +ATIVAN0.5 MG PO; +ATROPINE SULFATE2 ML OPHTHALMIC; +CALCIUM 500 +1 EAC5 PO; +CARVEDILOL12.5 MG PO; +COUMADIN 4 MG TA4 M1 PO; +HUMALOG100 UNIT/1 SUBQ; +LANTUS100 UNIT/M SUBQ; +LASIX 40 MG TAB40 M2 PO; +MIRALAX17 GM PO; +PREDNISOLONE ACE5 ML OPHTHALMIC; +QC ANTI-ITCH CR28 GM TOP; +SODIUM CHLORIDE NASAL; +[UNRECOGNIZED DRUG - CODE] INTRADERM; +[UNRECOGNIZED DRUG - OTHER] IV
[2018-06-05 12:28] LABS: ANION GAP 6 mmol/L (7-16); BUN 78 mg/dL (7-18); CALCIUM 9.3 mg/dL (8.5-10.1); CHLORIDE 107 mmol/L (98-107); CO2 27 mmol/L (21-32); CREATININE 2.4 mg/dL (0.7-1.3); GLUCOSE 234 mg/dL (74-106); POTASSIUM 5.9 mmol/L (3.5-5.1); SODIUM 140 mmol/L (136-145)
[2018-06-05 12:34] LABS: ALBUMIN 2.4 g/dL (3.4-5.0); SGOT 40 U/L (15-37); SGPT 121 U/L (30-65); TOTAL BILIRUBIN 0.4 mg/dL (<0.1-1.0); TOTAL PROTEIN 7.5 g/dL (6.4-8.2); TROPONIN-I <0.06 ng/mL (<0.06)
[2018-06-05] MEDS ORDERED: LASIX 40 MG TAB40 M2 PO (14:56)
[2018-06-05 16:07] VITALS: BP 163/84
== END 2018-06-05 16:09 | disposition home or self-care (01) ==
LOC: ER 11:20
PROVIDERS: Emergency Medicine
DX: I13.0 Hypertensive heart and chronic kidney disease with heart failure and stage 1 through stage 4 chronic kidney disease, or unspecified chronic kidney disease (principal); I50.9 Heart failure, unspecified; E11.9 Type 2 diabetes mellitus without complications; I95.1 Orthostatic hypotension; M19.90 Unspecified osteoarthritis, unspecified site; I25.10 Atherosclerotic heart disease of native coronary artery without angina pectoris; E78.5 Hyperlipidemia, unspecified; E11.621 Type 2 diabetes mellitus with foot ulcer; N18.3 Chronic kidney disease, stage 3 (moderate); Z95.5 Presence of coronary angioplasty implant and graft; Z86.2 Personal history of diseases of the blood and blood-forming organs and certain disorders involving the immune mechanism; Z79.4 Long term (current) use of insulin

== ENCOUNTER 2018-06-07 23:32 | Inpatient (IN) | payer OTHER ==
[~2018-06-07] VITALS: Ht 182.9 cm; Wt 70.8 kg
--- NOTE | ~2018-06-07 | EEG ---
[facility] [place] [address] ELECTROENCEPHALOGRAM Name: GINA PALMER Room #: 237-P [facility] IN M.R.#: [id number] Admission: 06/08/18 Attend Phys: German Lane MD Discharge: 06/11/18 Date of : 48 Report #: [id number] THIS REPORT FOR: //name// CC: Samy Lane HISTORY: The patient is status post code. An EEG is requested for further evaluation. The patient is on the ventilator, unresponsive. DESCRIPTION: The record consists of bursts of moderate amplitude 5 Hz activity lasting sometimes as only a single burst but up to approximately 2 seconds in length. This is followed by significant attenuation of the background record lasting anywhere from 1-2 seconds. Artifact was seen from the A2 electrode. No subclinical seizures were noted. IMPRESSION: This is an abnormal adult record consistent with a burst suppression pattern. This record demonstrates significant underlying diffuse cerebral dysfunction. No subclinical seizures were noted on this recording. By: 1317 1340 Ghada Saavedra DO /nt
--- NOTE | ~2018-06-07 | HC ---
[facility] [place] [address] CONSULTATION Name: GINA PALMER Room #: 237-P [facility].#: [id number] Admission: 06/08/18 Attend Phys: German Lane MD Discharge: 06/11/18 Date of : 46 Report #: [id number] THIS REPORT FOR: //name// CC: Samy Lane DATE OF SERVICE: 06/10/2018 CHIEF COMPLAINT: Left below knee amputation wound. HISTORY OF PRESENT ILLNESS: This is a 67-year-old male patient with whom I am familiar from multiple prior hospitalizations, who has been admitted to the hospital following a respiratory arrest. Apparently, the patient was drinking water in his room at home. His family heard him fall. They checked him and found him pulseless. CPR was initiated. Paramedics were summoned. He was noted to have ventricular tachycardia. He has been intubated. He is in the ICU with minimal responsiveness. PAST MEDICAL HISTORY: Significant for a previous left below knee amputation, diabetes mellitus, peripheral arterial disease, his left below-knee amputation was 12/07/2017, uncontrolled diabetes, hypertension, orthostatic hypotension, history of seizures, hyperlipidemia. SOCIAL HISTORY: Negative for alcohol or tobacco use. FAMILY HISTORY: Noncontributory. REVIEW OF SYSTEMS: Not obtainable due to the patient's unresponsive state. MEDICATIONS: Reported medications include melatonin, Azopt ophthalmic drops, Protonix, Synthroid, iron, Xalatan, Combigan, AmLactin, vitamin C, Os-Mayo, Coreg, diphenhydramine, Lasix, Neurontin, heparin, Lantus, Humalog, Lipitor, Claritin, Ativan, MiraLax, senna, Coumadin. REVIEW OF SYSTEMS: Not obtainable due to the patient's unresponsive state. PHYSICAL EXAMINATION: VITAL SIGNS: Include temperature 98.3, pulse 89, respiratory rate 16, and blood pressure 147/72. GENERAL: This is a chronically ill-appearing male patient who is minimally or nonresponsive on the ventilator in ICU. HEENT: Head: Normocephalic. NECK: Supple. LUNGS: Clear. HEART: Regular rhythm. ABDOMEN: Soft. [facility] [address] [place] [address] CONSULTATION Name: ESTELAGINA D Room #: 237-P [facility] IN [facility]#: [id number] Admission: 06/08/18 Attend Phys: German Lane MD Discharge: 06/11/18 Date of : 46 Report #: [id number] EXTREMITIES: Demonstrate left below knee amputation stump. The surgical wound is clean, healthy, granulating and is improved since I last saw him. It is not infected. He has a very small ulceration on his sacrum. It is almost pinpoint in size, maybe shearing related and it is very superficial. CLINICAL IMPRESSION: 1. Respiratory failure following out of hospital cardiopulmonary arrest, now requiring mechanical ventilation. 2. Surgical wound following left below knee amputation to the left stump. Left below-knee amputation stump appears to be improving. 3. Uncontrolled diabetes mellitus. 4. Hypertension. RECOMMENDATIONS: At this point in time, we will recommend ongoing local wound care with Fibracol and Xeroform gauze followed by Kerlix and Aries wrap. He will need low air loss mattress, q. 2 hour turning and positioning, PRAFO boot to the right lower extremity. We will recommend moisture barrier cream to the sacral region. He will need ongoing nutritional support to maximize wound healing and maintain good glycemic control. All questions have been answered. I appreciate being asked to see him in consultation. <ELECTRONICALLY SIGNED> By: Jonathan Martinez MD 06/14/18 0754 2353 0144 Jonathan Martinez MD /nt
--- NOTE | ~2018-06-07 | EKG ---
[address] [place] [address] ELECTROCARDIOGRAM REPORT Name: GINA PALMER Room #: 237-P ADM IN M.R.#: [id number] Admission: 06/08/18 Attend Phys: German Lane MD Discharge: Date of : 46 Report #: [id number] THIS REPORT FOR: //name// [facility] ED Test Date: 2018-06-08 Test Time: 00:00:01 Pat Name: GINA PALMER Department: Room: [facility] Gender: M Cross Cut Sawyer: ELYSSA : 1950 Requested By: Alana Llamas Order Number: [id number] MD: Juve Sanches Measurements Intervals [place] Rate: 67 P: 65 MS: 195 QRS: 30 QRSD: 88 T: 72 QT: 464 QTc: 490 Interpretive Statements Sinus rhythm Low voltage, extremity leads Nonspecific T abnormalities Borderline prolonged QT interval Compared to ECG 06/05/2018 11:31:07 T-wave abnormality now present Electronically Signed On 06-08-2018 16:08:36 CNC LASER OPERATOR by Juve Sanches [email or web address] <ELECTRONICALLY SIGNED> By: Juve Sanches MD, [facility] 06/08/18 1608 0000 0000 Juve Sanches MD, [facility] /EPI
--- NOTE | ~2018-06-07 | EKG ---
[address] [address] ELECTROCARDIOGRAM REPORT Name: GINA PALMER Room #: 237-P ADM IN M.R.#: [id number] Admission: 06/08/18 Attend Phys: German Lane MD Discharge: Date of : 46 Report #: [id number] THIS REPORT FOR: //name// [facility] ED Test Date: 2018-06-08 Test Time: 00:00:01 Pat Name: GINA ESTELA Department: Room: 237 P Gender: M Drawing Tender: ELYSSA CASSIDYB: 1950 Requested By: Alana Llamas Order Number: [id number] MD: Measurements Intervals [place] Rate: 67 P: 65 MD: 195 QRS: 30 QRSD: 88 T: 72 QT: 464 QTc: 490 Interpretive Statements Sinus rhythm Low voltage, extremity leads Nonspecific T abnormalities, lateral leads Borderline prolonged QT interval Compared to ECG 06/05/2018 11:31:07 T-wave abnormality now present [email or web address] By: 0000 [facility] Epiphany EpiphanyMD /EPI
--- NOTE | ~2018-06-07 | EKG ---
[address] [place] [address] ELECTROCARDIOGRAM REPORT Name: GINA PALMER Room #: 237- ADM IN M.R.#: [id number] Admission: 06/08/18 Attend Phys: German Lane MD Discharge: Date of : 46 Report #: [id number] THIS REPORT FOR: //name// [facility] Test Date: 2018-06-09 Test Time: 07:09:03 Pat Name: GINA PALMER Department: Room: 237 P Gender: M Motor Vehicle License Clerk: BS : 1950 Requested By: Rickey Givens Order Number: [id number] MD: Juve Sanches Measurements Intervals [place] Rate: 79 P: 76 [place]: 174 QRS: 52 QRSD: 77 T: QT: 532 QTc: 611 Interpretive Statements Sinus rhythm Nonspecific ST and T wave abnormality Prolonged QT interval Compared to ECG 06/08/2018 00:00:01 no significant change was found Electronically Signed On 06-09-2018 9:09:46 TOBACCO STEMMER by Juve Sanches [email or web address] <ELECTRONICALLY SIGNED> By: Juve Sanches MD, [facility] 12/11/20 908 8 8 Juve Sanches MD, [facility] /EPI
--- NOTE | ~2018-06-07 | HC ---
[facility] [place] [address] CONSULTATION Name: ESTELAGINA D Room #: 237-P [facility] IN .R.#: [id number] Admission: 06/08/18 Attend Phys: German Lane MD Discharge: Date of : 48 Report #: [id number] THIS REPORT FOR: //name// CC: Samy Lane HISTORY OF PRESENT ILLNESS: The patient is a 67-year-old male who was apparently at home, drinking water when he began to choke. His family heard him fall from the other room. They checked him two minutes later, by that time there was no pulse. Someone initiated CPR. EMS arrived 5 minutes later and CPR was performed for another 8-10 minutes. He was given epinephrine x 3, Narcan x 1. EMS reported a ventricular tachycardia on EKG. His blood sugar was 214. Apparently, the patient is supposed to sip fluids. The patient had seen his primary care provider earlier that day regarding low oxygen saturations and had been seen in the ER here 2 days before that for low oxygen saturations and persistent cough. The patient has been off sedation since 10:00 p.m. last night. He has no purposeful movements, but does respond to deep suction. PAST MEDICAL HISTORY: Hypertension, diabetes mellitus, esophagitis, orthostatic hypotension. Seizure, degenerative joint disease, coronary artery disease, hyperlipidemia, osteomyelitis right foot, iron deficiency anemia. PAST SURGICAL HISTORY: Left fikfe-vyd-hpcl amputation in 12/2017. Right toe amputation in 2017. Multiple stents placed. Left humerus fracture in 2016. Facial fracture in 2016. MEDICATIONS AT HOME: Included melatonin, Azopt ophthalmic drops, Protonix, Synthroid, iron, Xalatan, Combigan eye drops, aspirin, ammonium lactate, vitamin C, vitamin D, calcium, Coreg, furosemide, gabapentin, insulin Lantus and Humalog, atorvastatin, loratadine, lorazepam, MiraLax, prednisolone eyedrops, erythropoietin, senna and warfarin. ALLERGIES: None. PHYSICAL EXAMINATION: VITAL SIGNS: Temperature is 36.5, pulse rate 76, respiratory rate 16, blood pressure 133/70, bedside pulse oximetry 98% on the ventilator. LABORATORY DATA: White blood cell count 16,000, hemoglobin 7.9, hematocrit 24.7, MCV 79.2, platelet count 148,000. INR 1.8. Urinalysis 2+ protein, 1+ blood. Chemistry: Sodium 145, potassium 4.4, chloride 110, carbon dioxide 27, BUN 47, creatinine 2.2, glucose 156. Lactic acid 2.4, calcium 8.3, total bilirubin 0.4, AST 197, ALT 212, alkaline phosphatase 664, creatinine kinase 79. Troponin normal. Albumin 2. TSH 15.2. IMAGING STUDIES: A CT scan of the head was done on 06/07/2018, [place] [address] CONSULTATION Name: GINA PALMER Room #: 237-P [facility] IN M.R.#: [id number] Admission: 06/08/18 Attend Phys: German Lane MD Discharge: Date of : 46 Report #: [id number] NEUROLOGIC: Pupils small to mid position and size. Minimally reactive to light. Corneal reflexes are present. Oculocephalic reflex is absent. Facial expressions appear symmetrical bilaterally. The patient makes no spontaneous movements of the extremities. He is not responsive to verbal or tactile stimulation. The reflexes are trace throughout. The right plantar response is mute. The left plantar response cannot be checked because of the amputation. IMPRESSION AND PLAN: This patient has had an episode of anoxic encephalopathy. He has already had a CT scan. I will order an electroencephalogram for tomorrow. Overall, the patient's prognosis is guarded to poor. We will have to see if he becomes more alert over the next 24-48 hours. The electroencephalogram will be helpful in ruling out subclinical seizures. I thank you for your kind referral of the patient and will continue to follow him with you. <ELECTRONICALLY SIGNED> By: Ghada Saavedra DO 06/10/18 1531 1650 20 Ghada Saavedra DO /nt
--- NOTE | ~2018-06-07 | EEG ---
[facility] [place] [address] ELECTROENCEPHALOGRAM Name: GINA PALMER Room #: 237-P [facility] IN M.R.#: [id number] Admission: 06/08/18 Attend Phys: German Lane MD Discharge: Date of : 46 Report #: [id number] THIS REPORT FOR: //name// CC: Samy Lane DATE OF SERVICE: 06/10/2018 This patient is being evaluated for seizure and hypoxic encephalopathy. The patient's EEG was done by placing the electrodes by standard 10-20 system of electrode placement. Both referential and sequential montages were used for recording. Background activity in this patient's EEG is poorly formed. It is disorganized. It does appear to be up to about 5 Hz, but very low amplitude which is about 5-10 Hz. A lot of artifact is also present and that may overestimate the frequency. Photic stimulation is unremarkable. The patient had an electrographic seizure and intermittent seizure activity later on during the EEG. Photic stimulation is unremarkable. IMPRESSION: This is a severely abnormal EEG, which would be consistent with a clinical diagnosis of hypoxic encephalopathy. However, the finding is nonspecific and can occur with multiple other etiology like effect of psychotropic medication and therefore, clinical correlation is recommended. The patient's EEG demonstrates finding consistent with a seizure disorder. Seizure activity is present during later part of the record and active seizure was recorded. EEG was discussed with the apprentice instrument technician and Dr. Saavedra was informed about this EEG. <ELECTRONICALLY SIGNED> By: Cleve No MD 06/11/18 1054 1638 1658 Cleve No MD /nt
--- NOTE | ~2018-06-07 | EKG ---
[address] [address] ELECTROCARDIOGRAM REPORT Name: GINA PALMER Room #: 237- ADM IN M.R.#: [id number] Admission: 06/08/18 Attend Phys: German Lane MD Discharge: Date of : 46 Report #: [id number] THIS REPORT FOR: //name// [facility] Test Date: 2018-06-11 Test Time: 08:29:17 Pat Name: GINA PALMER Department: Room: 237 Gender: M Childcare Center Administrator: LARRY : 1950 Requested By: Lina Harrison Order Number: [id number] MD: Anibal Neil Measurements Intervals [place] Rate: 98 P: 45 ME: 157 QRS: 51 QRSD: 74 T: 242 QT: 326 QTc: 417 Interpretive Statements Sinus rhythm PACs Low voltage, extremity leads Compared to ECG 06/09/2018 07:09:03 Low QRS voltage now present Electronically Signed On 06-11-2018 13:22:22 SENIOR PAINTER by Anibal Neil [email or web address] <ELECTRONICALLY SIGNED> By: Anibal Neil MD 06/11/18 1322 0829 0829 Anibal Neil MD /EPI
--- NOTE | ~2018-06-07 | 2DMMODE ---
[facility] [place] [address] 2 D/M-MODE ECHOCARDIOGRAM Name: GINA PALMER Room #: 237-P ADM IN M.R.#: [id number] Admission: 06/08/18 Attend Phys: German Lane, Discharge: Date of : 46 Date of Service: 06/08/18 1456 Report #: [id number] THIS REPORT FOR: //name// APPROVED REPORT Study performed: 06/08/2018 10:35:05 EXAM: Comprehensive 2D, Doppler, and color-flow Echocardiogram Patient Location: ICU Room #: [facility] Status: routine BSA: 2.00 HR: 62 bpm BP: 139/75 mmHg Rhythm: NSR Other Information Study Quality: Adequate Indications Hypertension/HDD S^P Cardiac arrest 2D Dimensions RVDd: 31.56 mm IVSd: 12.45 (7-11mm) LVOT Diam: 22.01 (18-24mm) LVDd: 40.20 mm PWd: 12.32 (7-11mm) LVDs: 28.07 (25-40mm) Aortic Root: 30.39 mm IVC: 23.00 mm Volumes Left Atrial Volume (Systole) Single Plane 4CH: 43.35 mL Single Plane 2CH: 94.66 mL LA ESV Index: 35.00 mL/m2 Aortic Valve AoV Peak Toby.: 0.78 m/s AO Peak Gr.: 2.42 mmHg LVOT Max P.75 mmHg LVOT Max V: 0.66 m/s TREVOR Vmax: 3.24 cm2 Mitral Valve E/A Ratio: 1.1 MV Decel. Time: 217.11 ms [facility] [address] [place] [address] 2 D/M-MODE ECHOCARDIOGRAM Name: PALMERGINA Muniz Wyatt Room #: 237-[facility] IN [facility]#: [id number] Admission: 06/08/18 Attend Phys: German Lane, Discharge: Date of : 46 Date of Service: 06/08/18 1456 Report #: [id number] MV E Max Tboy.: 0.81 m/s MV A Toby.: 0.71 m/s MV PHT: 62.96 ms IVRT: 96.89 ms Pulmonary Valve PV Peak Toby.: 0.77 m/s PV Peak Gr.: 2.39 mmHg Tricuspid Valve TR Peak Toby.: 3.56 m/s TR Peak Gr.: 50.59 mmHg PA Pressure: 65.00 mmHg Left Ventricle The left ventricle is normal size. Mild concentric left ventricular hypertrophy. The left ventricular systolic function is normal. Mild hypokinesis base of inferolateral wall. LVEF is 50-55%. This study is not technically sufficient to allow evaluation of the LV diastolic function. Right Ventricle The right ventricle is normal size. The right ventricular systolic function is normal. Atria Left atrium is dilated. Right atrium is dilated. Aortic Valve The aortic valve is mildly sclerotic. No aortic regurgitation is present. There is no aortic valvular stenosis. Mitral Valve The mitral valve is normal in structure. Trace mitral regurgitation. No evidence of mitral valve stenosis. Tricuspid Valve The tricuspid valve is normal in structure. There is mild tricuspid regurgitation. Estimated PAP 65 mmHg. There is moderate pulmonary hypertension. Pulmonic Valve The pulmonary valve is normal in structure. There is no pulmonic valvular regurgitation. Great Vessels The aortic root is normal in size. The inferior vena cava is dilated [facility] [address] [place] [address] 2 D/M-MODE ECHOCARDIOGRAM Name: GINA PALMER Room #: 237-P [facility] IN M.R.#: [id number] Admission: 06/08/18 Attend Phys: German Lane, Discharge: Date of : 46 Date of Service: 06/08/18 1456 Report #: [id number] with no inspiratory collapse. Pericardium There is no pericardial effusion. Large pleural effusion. <Conclusion> The left ventricular systolic function is normal. Mild hypokinesis base of inferolateral wall. Mild concentric left ventricular hypertrophy. LVEF 50-55%. both atria are mildly dilated. The aortic valve is mildly sclerotic. No aortic regurgitation or stenosis. The mitral valve is normal in structure. Trace mitral regurgitation. There is mild tricuspid regurgitation. Estimated pulmonary artery pressure of 65 mmHg. There is no pericardial effusion. <ELECTRONICALLY SIGNED> By: Juve Sanches MD, FACC 06/08/18 1456 1456 145 Juve Sanches MD, FACC /INF
[2018-06-07 23:53] LABS: HEMATOCRIT 28.5 % (42.0-52.0); MCH 26.1 pg (26.0-34.0); MCHC 31.5 g/dL (28.0-37.0); MCV 82.9 fL (80.0-100.0); PLATELET COUNT 139 thou/uL (150-400); RBC 3.44 mil/uL (4.50-6.00); RDW 22.1 % (10.5-14.5); WBC 5.3 thou/uL (4.0-11.0)
[2018-06-07 23:54] LABS: URINE BILIRUBIN NEGATIVE (Negative); URINE BLOOD 1+ (Negative); URINE CLARITY CLEAR; URINE COLOR YELLOW; URINE GLUCOSE-RANDOM* TRACE (Negative); URINE KETONES NEGATIVE (Negative); URINE LEUKOCYTES-REFLEX NEGATIVE (Negative); URINE NITRITE-REFLEX NEGATIVE (Negative); URINE PROTEIN (DIPSTICK) 2+ (Negative); URINE UROBILINOGEN 0.2 E.U./dl (0.2-1.0)
[2018-06-07 23:58] LABS: ANION GAP 11 mmol/L (7-16); BUN 58 mg/dL (7-18); CALCIUM 8.5 mg/dL (8.5-10.1); CHLORIDE 108 mmol/L (98-107); CO2 24 mmol/L (21-32); CREATININE 2.4 mg/dL (0.7-1.3); GLUCOSE 207 mg/dL (74-106); SODIUM 143 mmol/L (136-145)
[2018-06-08] VITALS (59 sets, daily range): BP systolic 108–201; BP diastolic 60–110
[2018-06-08 00:05] LABS: AMP/METHAMP Negative (Negative); BARBITURATES Negative (Negative); BENZODIAZEPINES Negative (Negative); COCAINE Negative (Negative); METHADONE Negative (Negative); OPIATES Negative (Negative); PCP Negative (Negative)
[2018-06-08 00:07] LABS: SGOT 197 U/L (15-37); SGPT 212 U/L (30-65); TOTAL BILIRUBIN 0.4 mg/dL (<0.1-1.0); TROPONIN-I <0.06 ng/mL (<0.06)
[2018-06-08 00:15] LABS: BE(vivo) -3.6 mmol/L (-2 to +3); HCO3 20.7 mmol/L (22.0-26.0); PCO2 33.9 mmHg (35.0-45.0); PO2 393.7 mmHg (80.0-100.0); pH 7.403 (7.360-7.450); sO2 99.8 % (92.0-98.0)
[2018-06-08 00:17] LABS: ABSOLUTE NEUTROPHILS 2.8 thou/uL (1.4-8.2); NUCLEATED RBCS 2 /100WBC; PROMYELOCYTES 1 %
[2018-06-08 00:19] LABS: ANISOCYTOSIS 3+; POLYCHROMASIA 1+
[2018-06-08 00:20] LABS: BURR CELLS OCCASIONAL; LARGE PLATELETS OCCASIONAL; PLATELET ESTIMATE DECREASED; SCHISTOCYTES FEW
[2018-06-08 00:31] LABS: HYALINE CASTS 0-3 Few /LPF (None Seen)
[2018-06-08 00:34] LABS: FINE GRANULAR CASTS 0-3 Few /LPF (None Seen)
[2018-06-08 00:35] LABS: CRYSTALS None Seen /LPF (None Seen); MUCUS 0-3 Light strn/LPF (None Seen); SQUAMOUS 0-3 Few /LPF (0-3); URINE RBC 3-10 Few /HPF (0-2); URINE WBC-REFLEX 6-15 Few /HPF (0-5)
[2018-06-08 06:31] LABS: HEMOGLOBIN 8.6 gm/dL (14.0-18.0); MCH 26.2 pg (26.0-34.0); MCV 79.4 fL (80.0-100.0); RBC 3.28 mil/uL (4.50-6.00); RDW 21.3 % (10.5-14.5); WBC 7.7 thou/uL (4.0-11.0)
[2018-06-08 06:38] LABS: CALCIUM 8.4 mg/dL (8.5-10.1); CREATININE 2.1 mg/dL (0.7-1.3); POTASSIUM 4.2 mmol/L (3.5-5.1)
[2018-06-08 10:53] LABS: INR 1.8
[2018-06-08 10:56] LABS: APTT 42.9 Seconds (24.5-32.8); PROTIME 19.2 Seconds (9.3-11.4)
[2018-06-08 15:15] LABS: CLARITY CLOUDY; COLOR RED; SOURCE RIGHT CHEST; TOTAL VOLUME 60 mL
[2018-06-08 15:16] LABS: SOURCE RIGHT CHEST
[2018-06-08 15:26] LABS: BF NUCLEATED CELLS 750; BF RBC 28234
[2018-06-08 16:09] LABS: BF MACROPHAGE 12; BF NEUTROPHILS 53
[2018-06-09] VITALS (27 sets, daily range): BP systolic 101–181; BP diastolic 53–94
[2018-06-09 05:01] LABS: BASOPHILS 0.2 % (0.0-2.0); EOSINOPHILS 0.6 % (0.0-3.0); HEMATOCRIT 24.7 % (42.0-52.0); HEMOGLOBIN 7.9 gm/dL (14.0-18.0); LYMPHOCYTES 1.7 % (24.0-44.0); MCH 25.2 pg (26.0-34.0); MCHC 31.8 g/dL (28.0-37.0); MCV 79.2 fL (80.0-100.0); PLATELET COUNT 148 thou/uL (150-400); POLYS 93.5 % (36.0-66.0); RBC 3.12 mil/uL (4.50-6.00); RDW 21.5 % (10.5-14.5)
[2018-06-09 05:13] LABS: CALCIUM 8.3 mg/dL (8.5-10.1); CREATININE 2.2 mg/dL (0.7-1.3); POTASSIUM 4.4 mmol/L (3.5-5.1)
[2018-06-09 05:32] LABS: ANISOCYTOSIS 2+
[2018-06-09 05:33] LABS: BURR CELLS OCCASIONAL; SCHISTOCYTES OCCASIONAL; TARGET CELLS 1+
[2018-06-09 15:11] LABS: BODY FLUID AMYLASE 88 U/L (()); BODY FLUID GLUCOSE 192 mg/dL (()); BODY FLUID LDH 177 IU/L (()); BODY FLUID PROTEIN 2.2 g/dL (())
[2018-06-10] VITALS (27 sets, daily range): BP systolic 116–173; BP diastolic 52–85
[2018-06-10 11:22] LABS: CALCIUM 8.7 mg/dL (8.5-10.1); CREATININE 2.5 mg/dL (0.7-1.3); POTASSIUM 4.1 mmol/L (3.5-5.1)
[2018-06-11] VITALS (31 sets, daily range): BP systolic 115–175; BP diastolic 58–98
[2018-06-11 07:04] LABS: CALCIUM 8.2 mg/dL (8.5-10.1); CREATININE 2.6 mg/dL (0.7-1.3); POTASSIUM 3.8 mmol/L (3.5-5.1)
[2018-06-11 08:19] LABS: BE(vivo) -0.3 mmol/L (-2 to +3); HCO3 23.3 mmol/L (22.0-26.0); PCO2 33.5 mmHg (35.0-45.0); pH 7.461 (7.360-7.450); sO2 98.4 % (92.0-98.0)
[2018-06-11] MEDS ORDERED: AZOPT OPHTH1 %/10 M1 OPHTHALMIC (11:38)
== END 2018-06-11 23:45 | disposition short-term general hospital (02) | DRG 208 ==
LOC: ER 23:32 → EROBS 06-08 01:13 → ICU 06-08 01:13
PROVIDERS: Family Medicine; Nurse Practitioner; Nurse Practitioner Adult Health; Pediatrics; Student in an Organized Health Care Education/Training Program
PROC: 0BH17EZ Insertion of Endotracheal Airway into Trachea, Via Natural or Artificial Opening (ICD-10-PCS; principal; 2018-06-08)
PROC: 5A1945Z Respiratory Ventilation, 24-96 Consecutive Hours (ICD-10-PCS; principal; 2018-06-08)
DX: J96.01 Acute respiratory failure with hypoxia (principal); I50.43 Acute on chronic combined systolic (congestive) and diastolic (congestive) heart failure; J69.0 Pneumonitis due to inhalation of food and vomit; G93.1 Anoxic brain damage, not elsewhere classified; N17.9 Acute kidney failure, unspecified; E46 Unspecified protein-calorie malnutrition; E87.0 Hyperosmolality and hypernatremia; I13.0 Hypertensive heart and chronic kidney disease with heart failure and stage 1 through stage 4 chronic kidney disease, or unspecified chronic kidney disease; M19.90 Unspecified osteoarthritis, unspecified site; I25.10 Atherosclerotic heart disease of native coronary artery without angina pectoris; E78.5 Hyperlipidemia, unspecified; N18.3 Chronic kidney disease, stage 3 (moderate); E11.51 Type 2 diabetes mellitus with diabetic peripheral angiopathy without gangrene; E11.65 Type 2 diabetes mellitus with hyperglycemia; T68.XXXA Hypothermia, initial encounter; E11.22 Type 2 diabetes mellitus with diabetic chronic kidney disease; K81.1 Chronic cholecystitis; I25.5 Ischemic cardiomyopathy; D64.9 Anemia, unspecified; E87.8 Other disorders of electrolyte and fluid balance, not elsewhere classified; L98.499 Non-pressure chronic ulcer of skin of other sites with unspecified severity; H40.9 Unspecified glaucoma; Z89.512 Acquired absence of left leg below knee; Z68.21 Body mass index [BMI] 21.0-21.9, adult; Z79.4 Long term (current) use of insulin; Z89.421 Acquired absence of other right toe(s); I25.2 Old myocardial infarction; Z95.5 Presence of coronary angioplasty implant and graft; Z87.81 Personal history of (healed) traumatic fracture
CPT/HCPCS: 10078